=== PATIENT | female | born 1945 | race Caucasian/White ===

== ENCOUNTER → 2017-09-23 | Outpatient (CLI) | payer OTHER ==
[~2017-09-23] MED LIST: ACET-1256 PO; ASPEC81 PO; ATOR-24 PO; CALC500C70 PO; FRRS300 PO; MELO15TA3 PO; MULT-506 PO; NTRGSL/4 UT; PRLSR20 PO; [UNRECOGNIZED DRUG - CODE] PO
--- NOTE | 2017-09-23 15:39 | MAMMOGRAPHY REPORT ---
BILATERAL DIGITAL SCREENING MAMMOGRAM TOMOSYNTHESIS WITH CAD: 09/23/2017 CLINICAL HISTORY: Routine screening. Patient has no complaints. TECHNIQUE: The study was acquired using full field digital technology and interpreted from soft copy. Breast tomosynthesis in addition to standard 2D mammography was performed. Current study was also ev aluated with a Computer Aided Detection (CAD) system. COMPARISON: Comparison is made to exams dated: 03/28/2015 mammogram - [facility], mammogram, 02/15/2013 mammogram, and 05/27/2010 mammogram. BREAST COMPOSITION: There are scattered areas of fibroglandular density in both breasts. FINDINGS: No suspicious masses, calcifications, or areas of architectural distortion are noted in either breast . There has been no significant interval change compared to prior exams. Scattered bilateral benign appearing calcifications are not significantly changed. Oval circumscribed benign-appearing mass in the right breast at 6:00 is stable dating back to at least the 2010 exam. IMPRESSION: ACR BI-RADS CATEGORY 2: BENIGN There is no mammographic evidence of malignancy. A 1 year screening mammogram is recommended.( [id number]) The patient will receive written notification of the results. Some breast cancers are not detected with mammography. A negative mammographic report should not micheal y biopsy if a clinically suggestive mass is present. Devika Alvarez M.D. ah/:09/23/2017 07:46:24 Natural Resources Engineer: RT Gildardo(David)(M), [facility] letter sent: Normal 1/2 BI-RADS Code: ACR BI-RADS Category 2: Benign
== END | disposition home or self-care (01) ==
LOC: C.MAMM 07:19
PROVIDERS: ATTEND Family Medicine
DX: Z12.31 Encounter for screening mammogram for malignant neoplasm of breast (principal)

== ENCOUNTER 2020-11-18 15:45 | Inpatient (IN) ==
--- NOTE | 2020-11-18 17:39 | Emergency Department Note ---
Impression & Plan Cellulitis, HTN (hypertension), Abnormal ECG, Breath shortness ED Provider Note NAME: KALIE LIMA AGE: 75 SEX: F : 1945 ARRIVES VIA: Walk-In INFORMANT: Patient ED PROVIDER(S): Anand Mack DO CHIEF COMPLAINT: Right leg pain and shortness of breath HPI: Patient is a 75-year-old female who presents the ER for right calf pain. Patient notes that this started this past Tuesday. Has some redness which is worsening. Has a history of cellulitis. This feels like her previous bouts of cellulitis. Denies any headache or change in vision. No chest pain but does admit to shortness of breath over this weekend. Was seen and evaluated by the PCP and referred in for the shortness of breath for CT of the chest. Patient does take Eliquis and has not missed any doses. No other exacerbating or remitting factors. She notes that shortness of breath is worse with lying flat. She has gained 4 pounds recently. ROS: See above HPI for pertinent positives & negatives. A total of 10 systems reviewed and were otherwise negative. PAST MEDICAL HISTORY:See Below PAST SURGICAL HISTORY:See Below FAMILY HISTORY:See Below SOCIAL HISTORY:See Below HOME MEDICATIONS:See Below ALLERGIES:See Below VITALS:See Below PHYSICAL EXAMINATION: GENERAL: Sitting up in bed, alert, well appearing, well nourished, no distress, non-toxic EYE EXAM: normal conjunctiva. OROPHARYNX: no exudate, no erythema, lips, buccal mucosa, and tongue normal and mucous membranes are moist NECK: supple, no nuchal rigidity, no adenopathy, non-tender LUNGS: Clear to auscultation. Normal chest wall mechanics HEART: no murmurs, S1 normal and S2 normal ABDOMEN: abdomen soft, non-tender, normo-active bowel sounds, no masses, no rebound or guarding. UPPER EXTREMITIES: upper extremities are grossly normal. LOWER EXTREMITIES: Right calf larger than left. Erythema on the anterior aguillon. Pitting edema bilaterally. NEURO EXAM: Normal sensorium, cranial nerves II-XII grossly intact, normal speech, no gross weakness of arms, no gross weakness of legs. MEDICAL DECISION MAKING: Patient is a 75-year-old female who presents the ER for the above-stated complaint. IV was established, blood work was obtained. Labs are noted as anemia. BMP with slightly elevated creatinine at 1.6. LFTs troponin lipase syndrome workable. Lyme was negative. Covid was negative. Doppler was negative for any clots. Chest x-ray with pulmonary vascular congestion which consistent with her shortness of breath with worse with lying flat and her weight gain. She was given IV Lasix. She is given IV Rocephin for the cellulitis. EKG does show new septal Q waves with T wave changes. Uncertain of when this actually occurred. With her blood pressures ranging from 180s to 200s. Discussed case with hospitalist for further observation. Triage Nursing notes reviewed. Limited review of prior medical records performed Vital Signs: reviewed and remarkable for no significant abnormalities Differential diagnosis: Differential diagnoses includes but is not limited to pneumonia, bronchitis, COPD/Asthma exacerbation, pneumothorax, pulmonary embolism, congestive heart failure, acute coronary syndrome ER treatment provided: See below Diagnostics interpreted by me: ECG: Sinus rhythm rate of 60 Left axis No PVCs Septal Q waves T wave inversion in the septal leads Q waves are new from previous in 2008 Cardiac Monitoring: An order was placed for continuous cardiac monitoring. The monitor shows a rate of 62 with sinus rhythm. Laboratory studies: As stated above and show below. Imaging studies: See below Consultation(s): Discussed with Jessica Mckeon for further evaluation Procedures: none Critical Care: None Past Med/Surg History Medical History (Updated 11/18/20 @ 23:26 by Anand Mack DO) Arthritis Deep vein thrombosis DURING "MANY YEARS AGO">BLOOD THINNER AT THAT TIME (SINCE DISCONTINUED) Degenerative disc disease GERD (gastroesophageal reflux disease) History of cellulitis LOWER LEGS (REASON FOR BACTRIM) Hx of migraines Hyperlipidemia Hypertension Prediabetes DIET CONTROLLED Sleep apnea CPAP Surgical History Fusion of spine LUMBAR History of appendectomy History of arthroscopy LEFT KNEE X 1/RT KNEE X 2 History of cardiac cath OVER 5 YEARS AGO (NO STENTS PLACED) ALTOONA History of cholecystectomy History of colonoscopy WITH POLYPS REMOVED History of esophagogastroduodenoscopy (EGD) History of hysterectomy History of tooth extraction Hx of left cataract extraction Family History Mother Family history of diabetes mellitus Social History Smoking Status: Never smoker Second Hand Exposure: Yes (in past); Hx Alcohol Use: No Hx Substance Use: No Preferred Language: Tuvaluan Communication Ability: Effective Senior Data Architect Required: No Beliefs That Will Affect Care: None Current Living Situation: Spouse Feels Safe at Home: Yes Assistive Devices: Contacts, Denture - Upper and Glasses Allergies Allergies Allergy/AdvReac Type Severity Reaction Status Date / Time bee venom protein (honey bee) Allergy Severe Anaphylaxis Verified 11/18/20 19:09 Aminoglycosides Allergy Intermediate SEVERE RASH Verified 11/18/20 19:09 bacitracin Allergy Intermediate SEVERE RASH Verified 11/18/20 19:09 levofloxacin [From Levaquin] Allergy Intermediate RUPTURE Verified 11/18/20 19:09 ACHILLES neomycin Allergy Intermediate SEVERE RASH Verified 11/18/20 19:09 polymyxin B Allergy Intermediate SEVERE RASH Verified 11/18/20 19:09 Home Meds Home Medications Medication Instructions Recorded Confirmed acetaminophen 500 mg tablet 1,000 mg PO Q6H 08/14/19 11/18/20 hydrochlorothiazide 25 mg tablet 25 mg PO QAM 08/14/19 11/18/20 isosorbide mononitrate 30 mg 30 mg PO QAM 08/14/19 11/18/20 tablet,extended release 24 hr losartan 100 mg tablet 100 mg PO QAM 08/14/19 11/18/20 meloxicam 15 mg tablet 15 mg PO QAM 08/14/19 11/18/20 omeprazole 20 mg tablet,delayed 20 mg PO QAM 08/14/19 11/18/20 release rosuvastatin 40 mg tablet 40 mg PO HS 08/14/19 11/18/20 sulfamethoxazole 800 0.5 tab PO QAM 08/14/19 11/18/20 mg-trimethoprim 160 mg tablet (Bactrim DS) epinephrine 0.3 mg/0.3 mL 0.3 mg IM UD 11/18/20 11/18/20 injection, auto-injector (EpiPen) flecainide 100 mg tablet 100 mg PO BID 11/18/20 11/18/20 Results & Data (ED) Vital Signs Vital Signs - 24 hr 11/18/20 16:01 11/18/20 17:57 11/18/20 17:59 Temperature 36.4 C L Temperature Source Temporal Artery Scan Pulse Rate 76 63 Pulse Rate [Apical] Pulse Rate from SpO2 Sensor 63 Pulse Rhythm Pulse Rhythm [Apical] Pulse Strength [Apical] Respiratory Rate 20 18 Respiratory Effort / Characteristics Non-Labored Non-Labored Spontaneous Respiratory Depth Normal Normal Respiratory Pattern Regular Regular Blood Pressure 192/81 H Blood Pressure [Left Arm] Blood Pressure Mean 118 Blood Pressure Mean [Left Arm] Blood Pressure Position Sitting Blood Pressure Position [Left Arm] Pulse Oximetry 94 96 Oxygen Delivery Method Room Air Room Air Room Air Oxygen Flow Rate Sepsis Recent Fever Within 48 Hours No Sepsis New/Unexplained Change in Mental Status No Sepsis Action Taken by Nursing No Action Required 11/18/20 18:09 11/18/20 18:12 11/18/20 19:14 Temperature Temperature Source Pulse Rate 60 63 Pulse Rate [Apical] 60 Pulse Rate from SpO2 Sensor 65 Pulse Rhythm Regular Pulse Rhythm [Apical] Regular Pulse Strength [Apical] Normal Respiratory Rate 18 18 Respiratory Effort / Characteristics Non-Labored Spontaneous Respiratory Depth Normal Respiratory Pattern Regular Blood Pressure 178/78 H Blood Pressure [Left Arm] 192/81 H Blood Pressure Mean 111 Blood Pressure Mean [Left Arm] 118 Blood Pressure Position Blood Pressure Position [Left Arm] Semi-fowlers Pulse Oximetry 96 97 96 Oxygen Delivery Method Room Air Room Air Room Air Oxygen Flow Rate 0 Sepsis Recent Fever Within 48 Hours Sepsis New/Unexplained Change in Mental Status Sepsis Action Taken by Nursing 11/18/20 20:38 11/18/20 20:42 11/18/20 21:00 Temperature Temperature Source Pulse Rate 62 62 66 Pulse Rate [Apical] Pulse Rate from SpO2 Sensor 63 62 65 Pulse Rhythm Pulse Rhythm [Apical] Pulse Strength [Apical] Respiratory Rate 22 18 19 Respiratory Effort / Characteristics Respiratory Depth Respiratory Pattern Blood Pressure 146/60 H 158/54 H Blood Pressure [Left Arm] Blood Pressure Mean 88 88 Blood Pressure Mean [Left Arm] Blood Pressure Position Blood Pressure Position [Left Arm] Pulse Oximetry 98 97 98 Oxygen Delivery Method Room Air Room Air Room Air Oxygen Flow Rate Sepsis Recent Fever Within 48 Hours Sepsis New/Unexplained Change in Mental Status Sepsis Action Taken by Nursing 11/18/20 21:39 11/18/20 21:40 11/18/20 22:01 Temperature Temperature Source Pulse Rate 66 73 Pulse Rate [Apical] Pulse Rate from SpO2 Sensor 66 66 74 Pulse Rhythm Pulse Rhythm [Apical] Pulse Strength [Apical] Respiratory Rate 15 18 Respiratory Effort / Characteristics Respiratory Depth Respiratory Pattern Blood Pressure 148/62 H Blood Pressure [Left Arm] Blood Pressure Mean 90 Blood Pressure Mean [Left Arm] Blood Pressure Position Blood Pressure Position [Left Arm] Pulse Oximetry 96 96 94 Oxygen Delivery Method Room Air Room Air Room Air Oxygen Flow Rate Sepsis Recent Fever Within 48 Hours Sepsis New/Unexplained Change in Mental Status Sepsis Action Taken by Nursing 11/18/20 22:31 Temperature Temperature Source Pulse Rate 68 Pulse Rate [Apical] Pulse Rate from SpO2 Sensor 69 Pulse Rhythm Pulse Rhythm [Apical] Pulse Strength [Apical] Respiratory Rate 20 Respiratory Effort / Characteristics Respiratory Depth Respiratory Pattern Blood Pressure 119/52 L Blood Pressure [Left Arm] Blood Pressure Mean 74 Blood Pressure Mean [Left Arm] Blood Pressure Position Blood Pressure Position [Left Arm] Pulse Oximetry 97 Oxygen Delivery Method Room Air Oxygen Flow Rate Sepsis Recent Fever Within 48 Hours Sepsis New/Unexplained Change in Mental Status Sepsis Action Taken by Nursing Laboratory Data Result diagrams: 11/18/20 17:56 11/18/20 17:56 Lab Results 11/18/20 11/18/20 11/18/20 Range/Units 17:56 17:56 17:56 WBC 8.26 (4.8-10.8) K/uL RBC 3.50 L (4.2-5.4) M/uL Hgb 10.9 L (12.0-16.0) g/dL Hct 34.4 L (37-47) % MCV 98.3 (80-100) fL MCH 31.1 (25-34) pg MCHC 31.7 L (32-36) g/dL RDW Std Deviation 50.0 H (36.4-46.3) fL RDW Coeff of Adrian 14.1 (11.5-14.5) % Plt Count 215 (130-400) K/uL MPV 11.0 H (7.4-10.4) fL Immature Gran % (Auto) 0.1 % Neut % (Auto) 74.3 % Lymph % (Auto) 13.1 % Parmer % (Auto) 10.3 % Eos % (Auto) 2.1 % Baso % (Auto) 0.1 % Neut # (Auto) 6.14 (1.4-6.5) K/uL Lymph # (Auto) 1.08 L (1.2-3.4) K/uL Parmer # (Auto) 0.85 H (0.11-0.59) K/uL Eos # (Auto) 0.17 (0-0.5) K/uL Baso # (Auto) 0.01 (0-0.2) K/uL Immature Gran # (Auto) 0.01 (0.00-0.02) K/uL APTT 36.5 H (21.0-31.0) Seconds PTT Ratio 1.4 Sodium 139 (136-145) mmol/L Potassium 4.0 (3.5-5.1) mmol/L Chloride 107 (98-107) mmol/L Carbon Dioxide 28 (21-32) mmol/L Anion Gap 4.0 (3-11) BUN 31 H (7-18) mg/dl Creatinine 1.60 H (0.6-1.2) mg/dl Est Cr Clr Drug Dosing 38.8 ml/min Est GFR ( Amer) 36.2 ml/min Est GFR (Non-Af Amer) 31.2 ml/min BUN/Creatinine Ratio 19.5 (10-20) Glucose 117 H (70-99) mg/dl Calcium 8.9 (8.5-10.1) mg/dl Total Bilirubin 0.5 (0.2-1) mg/dl AST 17 (15-37) U/L ALT 21 (12-78) U/L Alkaline Phosphatase 83 (45-117) U/L Troponin I < 0.015 (0-0.045) ng/ml NT-Pro-B Natriuret Pep 415 (0-900) pg/ml Total Protein 8.1 (6.4-8.2) gm/dl Albumin 3.8 (3.4-5.0) gm/dl Globulin 4.3 H (2.5-4.0) gm/dl Albumin/Globulin Ratio 0.9 (0.9-2) Lipase 143 (73-393) U/L Anaplasma Smear Lyme Disease IgG Ab (Negative) Lyme Disease IgM Ab (Negative) COVID-19 Eval Order SARS-CoV-2 (PCR) (Negative) 11/18/20 11/18/20 11/18/20 Range/Units 17:56 17:56 20:40 WBC (4.8-10.8) K/uL RBC (4.2-5.4) M/uL Hgb (12.0-16.0) g/dL Hct (37-47) % MCV (80-100) fL MCH (25-34) pg MCHC (32-36) g/dL RDW Std Deviation (36.4-46.3) fL RDW Coeff of Adrian (11.5-14.5) % Plt Count (130-400) K/uL MPV (7.4-10.4) fL Immature Gran % (Auto) % Neut % (Auto) % Lymph % (Auto) % Parmer % (Auto) % Eos % (Auto) % Baso % (Auto) % Neut # (Auto) (1.4-6.5) K/uL Lymph # (Auto) (1.2-3.4) K/uL Parmer # (Auto) (0.11-0.59) K/uL Eos # (Auto) (0-0.5) K/uL Baso # (Auto) (0-0.2) K/uL Immature Gran # (Auto) (0.00-0.02) K/uL APTT (21.0-31.0) Seconds PTT Ratio Sodium (136-145) mmol/L Potassium (3.5-5.1) mmol/L Chloride (98-107) mmol/L Carbon Dioxide (21-32) mmol/L Anion Gap (3-11) BUN (7-18) mg/dl Creatinine (0.6-1.2) mg/dl Est Cr Clr Drug Dosing ml/min Est GFR ( Amer) ml/min Est GFR (Non-Af Amer) ml/min BUN/Creatinine Ratio (10-20) Glucose (70-99) mg/dl Calcium (8.5-10.1) mg/dl Total Bilirubin (0.2-1) mg/dl AST (15-37) U/L ALT (12-78) U/L Alkaline Phosphatase (45-117) U/L Troponin I (0-0.045) ng/ml NT-Pro-B Natriuret Pep (0-900) pg/ml Total Protein (6.4-8.2) gm/dl Albumin (3.4-5.0) gm/dl Globulin (2.5-4.0) gm/dl Albumin/Globulin Ratio (0.9-2) Lipase (73-393) U/L Anaplasma Smear See Comment Lyme Disease IgG Ab Negative (Negative) Lyme Disease IgM Ab Negative (Negative) COVID-19 Eval Order Cov[facility] at [facility] SARS-CoV-2 (PCR) (Negative) 11/18/20 Range/Units 20:40 WBC (4.8-10.8) K/uL RBC (4.2-5.4) M/uL Hgb (12.0-16.0) g/dL Hct (37-47) % MCV (80-100) fL MCH (25-34) pg MCHC (32-36) g/dL RDW Std Deviation (36.4-46.3) fL RDW Coeff of Adrian (11.5-14.5) % Plt Count (130-400) K/uL MPV (7.4-10.4) fL Immature Gran % (Auto) % Neut % (Auto) % Lymph % (Auto) % Parmer % (Auto) % Eos % (Auto) % Baso % (Auto) % Neut # (Auto) (1.4-6.5) K/uL Lymph # (Auto) (1.2-3.4) K/uL Parmer # (Auto) (0.11-0.59) K/uL Eos # (Auto) (0-0.5) K/uL Baso # (Auto) (0-0.2) K/uL Immature Gran # (Auto) (0.00-0.02) K/uL APTT (21.0-31.0) Seconds PTT Ratio Sodium (136-145) mmol/L Potassium (3.5-5.1) mmol/L Chloride (98-107) mmol/L Carbon Dioxide (21-32) mmol/L Anion Gap (3-11) BUN (7-18) mg/dl Creatinine (0.6-1.2) mg/dl Est Cr Clr Drug Dosing ml/min Est GFR ( Amer) ml/min Est GFR (Non-Af Amer) ml/min BUN/Creatinine Ratio (10-20) Glucose (70-99) mg/dl Calcium (8.5-10.1) mg/dl Total Bilirubin (0.2-1) mg/dl AST (15-37) U/L ALT (12-78) U/L Alkaline Phosphatase (45-117) U/L Troponin I (0-0.045) ng/ml NT-Pro-B Natriuret Pep (0-900) pg/ml Total Protein (6.4-8.2) gm/dl Albumin (3.4-5.0) gm/dl Globulin (2.5-4.0) gm/dl Albumin/Globulin Ratio (0.9-2) Lipase (73-393) U/L Anaplasma Smear Lyme Disease IgG Ab (Negative) Lyme Disease IgM Ab (Negative) COVID-19 Eval Order SARS-CoV-2 (PCR) NEGATIVE (Negative) Administered Medications Discontinued Medications Furosemide (Furosemide 40 Mg/4 Ml Vial) 40 mg IV NOW STA Stop: 11/18/20 20:04 Last Admin: 11/18/20 20:23 Dose: 40 mg Documented by: [id number] Hydralazine HCl (Hydralazine Hcl 20 Mg/Ml Vial) 10 mg IV NOW STA Stop: 11/18/20 20:26 Last Admin: 11/18/20 22:09 Dose: Not Given Documented by: [id number] Ceftriaxone Sodium (Rocephin) 1,000 mg in 50 mls @ 100 mls/hr IV NOW STA Stop: 11/18/20 19:31 Last Infusion: 11/18/20 19:40 Dose: 0 mls/hr Documented by: [id number] Admin: 11/18/20 19:09 Dose: 100 mls/hr Documented by: [id number] Imaging Data Radiologist's Impression: Chest X-Ray 11/18/20 17:35 XR chest 1V portable CLINICAL HISTORY: Chest Pain COMPARISON STUDY: Chest radiograph March 25, 2008. FINDINGS: A cardiac monitoring device is incidentally noted. There is no pneumothorax or pleural effusion. No consolidation is identified. Note is made of mild cardiomegaly. There is slight interstitial prominence without overt pulmonary edema. IMPRESSION: Mild cardiomegaly. Pulmonary vascular congestion without overt pulmonary edema. ACT 112: Negative or not required by law. Electronically signed by: Michael Clark M.D. 11/18/2020 7:46 PM Venous Doppler Study 11/18/20 17:35 RIGHT LOWER EXTREMITY VENOUS DOPPLER CLINICAL HISTORY: Right lower extremity pain. COMPARISON STUDY: No previous studies for comparison. TECHNIQUE: Sonography of the deep venous system of the right lower extremity was performed. Compression and augmentation were evaluated. FINDINGS: The right common femoral, superficial femoral and popliteal veins were compressible. Augmentation was normal. Flow was shown within the deep calf vessels. There is a small complex right popliteal cyst. This measures 4.4 x 2 x 1 cm. Sonography of the lateral right calf at site of pain demonstrated subcutaneous edema. No fluid collection is identified. IMPRESSION: 1. No evidence of deep venous thrombus within the right lower extremity. 2. Subcutaneous edema of the lateral right calf at site of pain. No fluid collection. 3. Small complex right popliteal cyst. ACT 112: Negative or not required by law. Electronically signed by: Michael Clark M.D. 11/18/2020 7:16 PM Discharge Plan Visit Data Chief Complaint: Infection Stated Complaint: CELLULITIS,SOB ED Provider: Anand Mack Discharge Problem: Cellulitis, HTN (hypertension), Abnormal ECG, Breath shortness Forms Stand Alone Forms: [employer] Prescriptions Prescriptions: No Action meloxicam 15 mg Tablet 15 mg PO QAM RF: 0 isosorbide mononitrate 30 mg Tablet Extended Release 24 Hr 30 mg PO QAM RF: 0 sulfamethoxazole-trimethoprim [Bactrim DS] 800-160 mg Tablet 0.5 tab PO QAM RF: 0 hydrochlorothiazide 25 mg Tablet 25 mg PO QAM RF: 0 losartan 100 mg Tablet 100 mg PO QAM RF: 0 rosuvastatin 40 mg Tablet 40 mg PO HS RF: 0 omeprazole 20 mg Tablet,Delayed Release (Dr/Ec) 20 mg PO QAM RF: 0 acetaminophen 500 mg Tablet 1,000 mg PO Q6H RF: 0 flecainide 100 mg tablet 100 mg PO BID RF: 0 epinephrine [EpiPen] 0.3 mg/0.3 mL auto-injector 0.3 mg IM UD RF: 0 Referrals Referrals: Dalila Wick MD [Primary Care Provider] - Discharge Problem: Cellulitis Qualifiers: Site of cellulitis: unspecified site Qualified Code(s): L03.90 - Cellulitis, unspecified HTN (hypertension) Qualifiers: Hypertension type: unspecified Qualified Code(s): I10 - Essential (primary) hypertension
[2020-11-18 18:05] LABS: Basophils # (auto) 0.01 K/uL (0-0.2); Basophils % (auto) 0.1 %; Eosinophils # (auto) 0.17 K/uL (0-0.5); Eosinophils % (auto) 2.1 %; Hematocrit (blood only) 34.4 % (37-47); Hemoglobin 10.9 g/dL (12.0-16.0); Immature Granulocytes # (auto) 0.01 K/uL (0.00-0.02); Immature Granulocytes % (auto) 0.1 %; Lymphocytes # (auto) 1.08 K/uL (1.2-3.4); Lymphocytes % (auto) 13.1 %; Mean Corpuscular Hemoglobin 31.1 pg (25-34); Mean Corpuscular Hgb Conc 31.7 g/dL (32-36); Mean Corpuscular Volume 98.3 fL (80-100); Monocytes # (auto) 0.85 K/uL (0.11-0.59); Monocytes % (auto) 10.3 %; Neutrophils # (auto) 6.14 K/uL (1.4-6.5); Neutrophils % (auto) 74.3 %; Platelet Count 215 K/uL (130-400); RDW Coefficient of Variation 14.1 % (11.5-14.5); White Blood Count 8.26 K/uL (4.8-10.8)
[2020-11-18 18:22] LABS: Partial Thromboplastin Ratio 1.4; Partial Thromboplastin Time 36.5 Seconds (21.0-31.0)
[2020-11-18 18:29] LABS: Alanine Aminotransferase 21 U/L (12-78); Albumin Level 3.8 gm/dl (3.4-5.0); Aspartate Aminotransferase 17 U/L (15-37); BUN Creatinine Ratio 19.5 (10-20); Blood Urea Nitrogen 31 mg/dl (7-18); Calcium 8.9 mg/dl (8.5-10.1); Carbon Dioxide 28 mmol/L (21-32); Chloride 107 mmol/L (98-107); Creatinine Clr Calc Pharmacy 38.8 ml/min; Est GFR (African American) 36.2 ml/min; Est GFR (Non-African American) 31.2 ml/min; Glucose 117 mg/dl (70-99); Lipase 143 U/L (73-393); Sodium 139 mmol/L (136-145)
[2020-11-18 18:34] LABS: Albumin Globulin Ratio 0.9 (0.9-2); Alkaline Phosphatase 83 U/L (45-117); Bilirubin,Total 0.5 mg/dl (0.2-1); Globulin 4.3 gm/dl (2.5-4.0); Total Protein 8.1 gm/dl (6.4-8.2); Troponin I < 0.015 ng/ml (0-0.045)
[2020-11-18] MEDS ORDERED: cefTRIAXone SODIUM 1,000 MG/50 ML BAG IV STA (19:02)
--- NOTE | 2020-11-18 19:18 | Ultrasound Report ---
RIGHT LOWER EXTREMITY VENOUS DOPPLER CLINICAL HISTORY: Right lower extremity pain. COMPARISON STUDY: No previous studies for comparison. TECHNIQUE: Sonography of the deep venous system of the right lower extremity was performed. Compress ion and augmentation were evaluated. FINDINGS: The right common femoral, superficial femoral and popliteal veins were compressible. Augme ntation was normal. Flow was shown within the deep calf vessels. There is a small complex right popli teal cyst. This measures 4.4 x 2 x 1 cm. Sonography of the lateral right calf at site of pain demonst rated subcutaneous edema. No fluid collection is identified. IMPRESSION: 1. No evidence of deep venous thrombus within the right lower extremity. 2. Subcutaneous edema of the lateral right calf at site of pain. No fluid collection. 3. Small complex right popliteal cyst. ACT 112: Negative or not required by law. Electronically signed by: Michael Clark M.D. 11/18/2020 7:16 PM
--- NOTE | 2020-11-18 19:48 | XRay Report ---
XR chest 1V portable CLINICAL HISTORY: Chest Pain COMPARISON STUDY: Chest radiograph March 25, 2008. FINDINGS: A cardiac monitoring device is incidentally noted. There is no pneumothorax or pleural effu alberta. No consolidation is identified. Note is made of mild cardiomegaly. There is slight interstitial prominence without overt pulmonary edema. IMPRESSION: Mild cardiomegaly. Pulmonary vascular congestion without overt pulmonary edema. ACT 112: Negative or not required by law. Electronically signed by: Michael Clark M.D. 11/18/2020 7:46 PM
[2020-11-18] MEDS ORDERED: FUROSEMIDE 40 MG/4 ML VIAL IV STA (20:03)
[2020-11-18] MEDS ORDERED: hydrALAZINE HCL 20 MG/ML VIAL IV STA (20:25)
--- NOTE | 2020-11-18 20:56 | History & Physical Report ---
Date of Service November 18, 2020 Assessment & Plan (1) Cellulitis: Plan: 75 y/o F w/ recurrent cellulitis on daily Bactrim prevention who presents w/ acute RLE cellulitis w/ some concerns for hypoxia / dyspnea. - also considered PAD, but foot is not erythematous, reassuring - venous doppler neg for dvt. - check lyme/anaplasma - s/p Rocephin in ED (24 hour dose). For subsequent days, consider vanc vs doxycycline for MRSA coverage because patient reports MRSA hx in distant past and has always received MRSA coverage during prior cellulitis admissions. - follow kidney function (2) Acute respiratory failure with hypoxia: Plan: - satting well on RA and lungs clear to auscultation, reassuring - significant 1 day wt gain, considered CHF as most likely etiology, though no prior hx - cardiac event would be possible sudden contributor - ddx: PE, infection - check echo - [place] 3 points, moderate probability. given current reassuring clinical picture, will not order CTA - check bnp - trend trop - Is/Os. external urinary catheter - daily weights - s/p Lasix in ED. Further diuresis as needed (3) Chest discomfort: Plan: - ecg new septal q waves and T waves in anterior leads. - had lexiscan 2016 and cath 2017 30% rca - never smoker - trend trop and check echo as above (4) Urinary retention: Plan: - chronic incontinence. neg for other saddle anesthesia sxs - has spinal stenosis, but overall presentation not consistent w/ acute occlusion or emergent presentation - ordered bladder scan (5) Elevated serum creatinine: Plan: - baseline unknown. Cr 1.6 this admission - possible/likely NELSY - follow BMP (6) FLAVIO (obstructive sleep apnea): Plan: - continue home qhs cpap 9 mmHg, scheduled to start night of 11/19/20 (7) HTN (hypertension): Plan: - continue home regimen (8) GERD (gastroesophageal reflux disease): Plan: - continue home omeprazole (9) Hyperlipidemia: Plan: - continue home regimen Plan: FEN/GI: low Na diet. No maintenance IVF ppx: home Eliquis 5 BID code: full dispo: med/surg History of Present Illness Chief Complaint: right leg cellulitis Primary Care Provider: MD Sabino Solisette Johanana is a 75 y/o F w/ PMHx of recurrent lower extremity cellulitis, afib on Eliquis, FLAVIO on cpap, spinal stenosis (fusion L4-L5 2008), and pre DM who presents via referral from PCP w/ 1 day of R leg swelling/erythema and 4 pound weight gain x1 day. She has had several weeks of dyspnea on exertion and noted 2-3 days of orthopnea. Patient states that 2 days ago, she had a day of difficulty taking deep breaths, limited by mild chest pressure discomfort. Denied radiation, jaw/arm involvement. O2 sat dipped to 90 x 1 episode at home. Patient also had a prolonged half-day where she was unable to urinate and had suprapublic discomfort, since resolved. Never smoker. Denies having prior echo. Covid vaccinated Pfizer x2 in May. +chronic urinary incontinence but denies saddle anesthesia symptoms. No recent tick bites. Denies recent vigorous activity. Recently retired [employer]. Denies dietary changes; she tries to watch her salt intake. ED course: Rocephin x1. IV Lasix. Doppler neg for DVT. CXR w/ pulm vasc congestion. Cr elevated to 1.6. ECG w/ new septal Q waves and T wave changes. Allergies Allergy/AdvReac Type Severity Reaction Status Date / Time bee venom protein (honey bee) Allergy Severe Anaphylaxis Verified 11/18/20 19:09 Aminoglycosides Allergy Intermediate SEVERE RASH Verified 11/18/20 19:09 bacitracin Allergy Intermediate SEVERE RASH Verified 11/18/20 19:09 levofloxacin [From Levaquin] Allergy Intermediate RUPTURE Verified 11/18/20 19:09 ACHILLES neomycin Allergy Intermediate SEVERE RASH Verified 11/18/20 19:09 polymyxin B Allergy Intermediate SEVERE RASH Verified 11/18/20 19:09 Home Medications Medication Instructions Recorded Confirmed Type acetaminophen 500 mg tablet 1,000 mg PO Q6H 08/14/19 11/18/20 History hydrochlorothiazide 25 mg tablet 25 mg PO QAM 08/14/19 11/18/20 History isosorbide mononitrate 30 mg 30 mg PO QAM 08/14/19 11/18/20 History tablet,extended release 24 hr losartan 100 mg tablet 100 mg PO QAM 08/14/19 11/18/20 History meloxicam 15 mg tablet 15 mg PO QAM 08/14/19 11/18/20 History omeprazole 20 mg tablet,delayed 20 mg PO QAM 08/14/19 11/18/20 History release rosuvastatin 40 mg tablet 40 mg PO HS 08/14/19 11/18/20 History sulfamethoxazole 800 0.5 tab PO QAM 08/14/19 11/18/20 History mg-trimethoprim 160 mg tablet (Bactrim DS) epinephrine 0.3 mg/0.3 mL 0.3 mg IM UD 11/18/20 11/18/20 History injection, auto-injector (EpiPen) flecainide 100 mg tablet 100 mg PO BID 11/18/20 11/18/20 History Past Med/Surg History Medical History (Updated 11/19/20 @ 03:03 by Anand Knox MD) Arthritis Deep vein thrombosis DURING "MANY YEARS AGO">BLOOD THINNER AT THAT TIME (SINCE DISCONTINUED) Degenerative disc disease GERD (gastroesophageal reflux disease) History of cellulitis LOWER LEGS (REASON FOR BACTRIM) Hx of migraines Hyperlipidemia Hypertension Prediabetes DIET CONTROLLED Sleep apnea CPAP Surgical History Fusion of spine LUMBAR History of appendectomy History of arthroscopy LEFT KNEE X 1/RT KNEE X 2 History of cardiac cath OVER 5 YEARS AGO (NO STENTS PLACED) [place] History of cholecystectomy History of colonoscopy WITH POLYPS REMOVED History of esophagogastroduodenoscopy (EGD) History of hysterectomy History of tooth extraction Hx of left cataract extraction Family History Mother Family history of diabetes mellitus Social History Smoking Status: Never smoker Second Hand Exposure: Yes (in past); Hx Alcohol Use: No Hx Substance Use: No Preferred Language: Japanese Communication Ability: Effective Blueprint Maker Required: No Beliefs That Will Affect Care: None Current Living Situation: Spouse and Other Current Living Situation Comment: pt lives with spouse and brother Feels Safe at Home: Yes Assistive Devices: Denture - Upper, Denture - Lower, Glasses and Walker Review of Systems Review of Systems: Constitutional: Denies fever.. + weight gain. + chills 3 days ago, resolved Eyes: Denies blurry vision, vision changes ENT: Denies sore throat Cardiovascular: Denies chest pain, palpitations Respiratory: Denies shortness of breath. + orthopnea and dyspnea on exertion. Gastrointestinal: Denies current abdominal pain, nausea, vomiting, constipation, diarrhea Genitourinary: See HPI. Urinary retention resolved Musculoskeletal: See HPI Neurological: Denies headache. + chronic lower extremity paresthesias up to calf Physical Exam Physical Exam: General: Grossly A&O. NAD. Cooperative. HEENT: Atraumatic, normocephalic. EOMI. PERRL. Pulm: CTAB. -wheezes, -rales, -rhonchi. No respiratory distress. Cardiac: RRR, -mrg. Radial pulses intact and symmetrical. 3+ LE edema on right, 2+ on left. DP pulse stronger on left. Abdominal: Nontender, nondistended, soft. Integ: erythema and warmth of anterior right aguillon. Musculoskeletal: Mild ttp of posterior knees, bilaterally, chronic. Chest wall ttp, not reproducible of same type of chest pressure she had previously experienced Neuro: Normal strength and sensation of lower extremities. Neg SLR. Results & Data Results & Data ([facility]) Vital Signs (Past 12 Hours) Vital Signs Temp Pulse Pulse Resp BP BP Pulse Ox 11/18/20 20:38 62 22 146/60 H 98 11/18/20 19:14 63 18 178/78 H 96 11/18/20 18:12 97 11/18/20 18:09 60 60 18 192/81 H 96 11/18/20 17:57 63 18 192/81 H 96 11/18/20 16:01 36.4 C L 76 20 94 Laboratory Results Laboratory Results WBC 8.26 K/uL (4.8-10.8) 11/18/20 17:56 RBC 3.50 M/uL (4.2-5.4) L 11/18/20 17:56 Hgb 10.9 g/dL (12.0-16.0) L 11/18/20 17:56 Hct 34.4 % (37-47) L 11/18/20 17:56 MCV 98.3 fL (80-100) 11/18/20 17:56 MCH 31.1 pg (25-34) 11/18/20 17:56 MCHC 31.7 g/dL (32-36) L 11/18/20 17:56 RDW Std Deviation 50.0 fL (36.4-46.3) H 11/18/20 17:56 RDW Coeff of [place] 14.1 % (11.5-14.5) 11/18/20 17:56 Plt Count 215 K/uL (130-400) 11/18/20 17:56 MPV 11.0 fL (7.4-10.4) H 11/18/20 17:56 Immature Gran % (Auto) 0.1 % 11/18/20 17:56 Neut % (Auto) 74.3 % 11/18/20 17:56 Lymph % (Auto) 13.1 % 11/18/20 17:56 [place] % (Auto) 10.3 % 11/18/20 17:56 Eos % (Auto) 2.1 % 11/18/20 17:56 Baso % (Auto) 0.1 % 11/18/20 17:56 Neut # (Auto) 6.14 K/uL (1.4-6.5) 11/18/20 17:56 Lymph # (Auto) 1.08 K/uL (1.2-3.4) L 11/18/20 17:56 [place] # (Auto) 0.85 K/uL (0.11-0.59) H 11/18/20 17:56 Eos # (Auto) 0.17 K/uL (0-0.5) 11/18/20 17:56 Baso # (Auto) 0.01 K/uL (0-0.2) 11/18/20 17:56 Immature Gran # (Auto) 0.01 K/uL (0.00-0.02) 11/18/20 17:56 APTT 36.5 Seconds (21.0-31.0) H 11/18/20 17:56 PTT Ratio 1.4 11/18/20 17:56 Sodium 139 mmol/L (136-145) 11/18/20 17:56 Potassium 4.0 mmol/L (3.5-5.1) 11/18/20 17:56 Chloride 107 mmol/L (98-107) 11/18/20 17:56 Carbon Dioxide 28 mmol/L (21-32) 11/18/20 17:56 Anion Gap 4.0 (3-11) 11/18/20 17:56 BUN 31 mg/dl (7-18) H 11/18/20 17:56 Creatinine 1.60 mg/dl (0.6-1.2) H 11/18/20 17:56 Est Cr Clr Drug Dosing 38.8 ml/min 11/18/20 17:56 Est GFR ( Amer) 36.2 ml/min 11/18/20 17:56 Est GFR (Non-Af Amer) 31.2 ml/min 11/18/20 17:56 BUN/Creatinine Ratio 19.5 (10-20) 11/18/20 17:56 Glucose 117 mg/dl (70-99) H 11/18/20 17:56 Calcium 8.9 mg/dl (8.5-10.1) 11/18/20 17:56 Total Bilirubin 0.5 mg/dl (0.2-1) 11/18/20 17:56 AST 17 U/L (15-37) 11/18/20 17:56 ALT 21 U/L (12-78) 11/18/20 17:56 Alkaline Phosphatase 83 U/L (45-117) 11/18/20 17:56 Troponin I < 0.015 ng/ml (0-0.045) 11/18/20 17:56 NT-Pro-B Natriuret Pep 415 pg/ml (0-900) 11/18/20 17:56 Total Protein 8.1 gm/dl (6.4-8.2) 11/18/20 17:56 Albumin 3.8 gm/dl (3.4-5.0) 11/18/20 17:56 Globulin 4.3 gm/dl (2.5-4.0) H 11/18/20 17:56 Albumin/Globulin Ratio 0.9 (0.9-2) 11/18/20 17:56 Lipase 143 U/L (73-393) 11/18/20 17:56 Anaplasma Smear See Comment 11/18/20 17:56 Lyme Disease IgG Ab Negative (Negative) 11/18/20 17:56 Lyme Disease IgM Ab Negative (Negative) 11/18/20 17:56 COVID-19 Eval Order Covid19 at [facility] 11/18/20 20:40 SARS-CoV-2 (PCR) NEGATIVE (Negative) 11/18/20 20:40 Diagnostic Findings Chest X-Ray 11/18/20 17:35 XR chest 1V portable CLINICAL HISTORY: Chest Pain COMPARISON STUDY: Chest radiograph March 25, 2008. FINDINGS: A cardiac monitoring device is incidentally noted. There is no pneumothorax or pleural effusion. No consolidation is identified. Note is made of mild cardiomegaly. There is slight interstitial prominence without overt pulmonary edema. IMPRESSION: Mild cardiomegaly. Pulmonary vascular congestion without overt pulmonary edema. Venous Doppler Study 11/18/20 17:35 RIGHT LOWER EXTREMITY VENOUS DOPPLER CLINICAL HISTORY: Right lower extremity pain. COMPARISON STUDY: No previous studies for comparison. TECHNIQUE: Sonography of the deep venous system of the right lower extremity was performed. Compression and augmentation were evaluated. FINDINGS: The right common femoral, superficial femoral and popliteal veins were compressible. Augmentation was normal. Flow was shown within the deep calf vessels. There is a small complex right popliteal cyst. This measures 4.4 x 2 x 1 cm. Sonography of the lateral right calf at site of pain demonstrated subcutaneous edema. No fluid collection is identified. IMPRESSION: 1. No evidence of deep venous thrombus within the right lower extremity. 2. Subcutaneous edema of the lateral right calf at site of pain. No fluid collection. 3. Small complex right popliteal cyst. Code Status & VTE Plan Code Status full code VTE Prophylaxis Plan VTE Prophylaxis will be ordered: Yes Supervising Physician Co-Signing Physician Notes Patient seen and examined, chart reviewed, case discussed with Dr. Knox and I agree with the plan as discussed. In brief, patient is a 75yo female presenting with RLE redness and pain consistent with prior episodes of cellulitis as well as orthopnea, weight gain and edema. On exam she is afebrile, HD stable, NAD, non-toxic in appearance HEENT - NC/AT, PERRL, MMM, Neck supple Heart - +S1/S2, regular, no m/r/g Lungs - CTA Abd - +BS, soft, NT/ND Ext - warmth and redness of RLE below knee, tenderness of lateral aguillon with edema, no crepitus/streaking Labs and images reviewed Assessment/Plan 1. Cellulitis - RLE, patient afebrile, non-toxic in appearance, has h/o MRSA infection in distant past. Will cover with Vancomycin. Tylenol as needed for pain 2. Transient episode of hypoxia as reported from home measurement. No hypoxia here. Patient is 97% on RA. In conjunction with complaints of edema, orthopnea and weight gain must consider CHF. Will check 2D echo. Patient given Lasix in ER - monitor response Remainder of plan as above (1) Cellulitis Site of cellulitis: unspecified site Qualified Code(s): L03.90 - Cellulitis, unspecified (2) HTN (hypertension) Hypertension type: unspecified Qualified Code(s): I10 - Essential (primary) hypertension
[2020-11-18] MEDS ORDERED: FLECAINIDE ACETATE 100 MG TABLET PO SCH (22:25)
[2020-11-18] MEDS ORDERED: APIXABAN 5 MG TABLET PO SCH (22:30)
[2020-11-18] MEDS ORDERED: FLECAINIDE ACETATE 100 MG TABLET PO STA (22:43)
[2020-11-18] MEDS ORDERED: APIXABAN 5 MG TABLET PO STA (22:44)
[2020-11-18] MEDS ORDERED: ROSUVASTATIN CALCIUM 20 MG TAB PO STA (22:51)
[2020-11-18 23:08] LABS: Lyme Ab IgG w/WB Rflx Negative (Negative); Lyme Ab IgM w/WB Rflx Negative (Negative)
[2020-11-18 23:12] LABS: NT Pro B Type Natriuretic Pept 415 pg/ml (0-900)
--- NOTE | 2020-11-19 | Billing Data ---
Date of Service November 18, 2020 Coding Level of Care Code INT OBSERVATION CARE 50M LVL 2
[2020-11-19] MEDS: ACETAMINOPHEN 325 MG TAB PO PRN ×3 (01:48→19:48)
[2020-11-19] MEDS ORDERED: PNEUMOCOCCAL POLYSACCHARIDES 25 MCG/0.5 ML VIAL/SYR IM ONE (08:00)
--- NOTE | 2020-11-19 08:26 | Electrocardiogram Report ---
Test Reason : Blood Pressure : / mmHG Vent. Rate : 060 BPM Atrial Rate : 060 BPM P-R Int : 204 ms QRS Dur : 118 ms QT Int : 450 ms P-R-T Axes : 043 -36 046 degrees QTc Int : 450 ms Normal sinus rhythm Left anterior fascicular block Incomplete right bundle branch block Possible Septal infarct , age undetermined Abnormal ECG When compared with ECG of 25-MAR-2008 11:04, Criteria for Septal infarct is now Present Confirmed by Sam Pineda ([id number]) on 11/19/2020 8:26:37 AM Referred By: REFERRED SELF Confirmed By:Sam Pineda
[2020-11-19] MEDS ORDERED: VANCOMYCIN CONSULT ACTIVE PRN (08:58)
[2020-11-19] MEDS ORDERED: hydroCHLOROthiazide 25 MG TAB PO SCH (09:00)
[2020-11-19] MEDS ORDERED: VANCOMYCIN HCL 1,000 MG in SODIUM CHLORIDE 0.9% 250 ML IV SCH (09:00)
[2020-11-19] MEDS: LOSARTAN POTASSIUM 50 MG TAB PO SCH (09:07)
[2020-11-19] MEDS: APIXABAN 5 MG TABLET PO SCH ×2 (09:07→19:48)
[2020-11-19] MEDS: ISOSORBIDE MONO EXTENDED REL 30 MG TABCR PO SCH (09:07)
[2020-11-19] MEDS: PANTOprazole 40 MG TAB PO SCH (09:07)
[2020-11-19 09:26] LABS: Basophils # (auto) 0.01 K/uL (0-0.2); Basophils % (auto) 0.1 %; Eosinophils # (auto) 0.19 K/uL (0-0.5); Eosinophils % (auto) 2.7 %; Hematocrit (blood only) 34.8 % (37-47); Hemoglobin 11.2 g/dL (12.0-16.0); Immature Granulocytes # (auto) 0.01 K/uL (0.00-0.02); Immature Granulocytes % (auto) 0.1 %; Lymphocytes # (auto) 0.96 K/uL (1.2-3.4); Lymphocytes % (auto) 13.7 %; Mean Corpuscular Hemoglobin 31.5 pg (25-34); Mean Corpuscular Hgb Conc 32.2 g/dL (32-36); Mean Corpuscular Volume 97.8 fL (80-100); Mean Platelet Volume 10.9 fL (7.4-10.4); Monocytes # (auto) 0.64 K/uL (0.11-0.59); Monocytes % (auto) 9.1 %; Neutrophils # (auto) 5.21 K/uL (1.4-6.5); Neutrophils % (auto) 74.3 %; Platelet Count 227 K/uL (130-400); RDW Coefficient of Variation 13.9 % (11.5-14.5); RDW Standard Deviation 49.6 fL (36.4-46.3); Red Blood Count 3.56 M/uL (4.2-5.4); White Blood Count 7.02 K/uL (4.8-10.8)
[2020-11-19 09:52] LABS: BUN Creatinine Ratio 20.5 (10-20); Blood Urea Nitrogen 34 mg/dl (7-18); Calcium 9.4 mg/dl (8.5-10.1); Carbon Dioxide 27 mmol/L (21-32); Chloride 105 mmol/L (98-107); Creatinine Clr Calc Pharmacy 37.3 ml/min; Est GFR (African American) 34.8 ml/min; Est GFR (Non-African American) 30.1 ml/min; Glucose 119 mg/dl (70-99); Potassium 3.7 mmol/L (3.5-5.1); Sodium 140 mmol/L (136-145)
[2020-11-19 09:57] LABS: Troponin I < 0.015 ng/ml (0-0.045)
--- NOTE | 2020-11-19 10:03 | XCELERA ---
[id number]
[2020-11-19] MEDS: DAPTOmycin 325 MG in SYRINGE 0 ML IV SCH (12:00)
[2020-11-19] MEDS: FLECAINIDE ACETATE 100 MG TABLET PO SCH ×2 (12:01→21:53)
--- NOTE | 2020-11-19 12:11 | Hospitalist Progress Note ---
Date of Service November 19, 2020 Assessment & Plan (1) Cellulitis: Plan: 75 y/o F w/ recurrent cellulitis on daily Bactrim prevention who presents w/ acute RLE cellulitis w/ some concerns for hypoxia / dyspnea with sob w exertion (talks of cath w her disciplinary hearing officer in [place]). Past week bites by mosquitos to that leg lateral aspect where redness started (then traveled in car approx 45 min home but does keep elevated and uses stockings as much as possible) Hx PAD and ablations for both legs however foot not erythematous at this time and located to [place] at this time. Rec'd following up with her disciplinary hearing officer as he did the ablations and also concerns for CANTU and possible need for repeat cardiac cath as it has been several years (no hx stent, trop negative x2) US Venous Doppler: 1. No evidence of deep venous thrombus within the right lower extremity. 2. Subcutaneous edema of the lateral right calf at site of pain. No fluid collection. 3. Small complex right popliteal cyst. Given Rocephin in ER but will place on Dapto (vanco avoided given BMI) in patient w/ hx MRSA and requiring Vancomycin. Marked area of cellulitis today -- monitor for improvement Patient hopeful for discharge today but agreed to stay for another day IV abx to monitor response and plans for transition to PO Doxy at d/c if continues to improve (on chronic Bactrim for suppression) Continue to monitor response (2) HTN (hypertension): Plan: Controlled Holding HCTZ for Cr 1.65/dehydration on admission but continue her losartan for now Continue to monitor (3) GERD (gastroesophageal reflux disease): Plan: Continue PPI (4) Hyperlipidemia: Plan: Holding statin while on Dapto (5) Atrial fibrillation: Plan: hx of such however has been sinus rhythm --?if possible afib/rvr prior to admission with current infection leading to rapid weight gain possible? Regular on examination but not on monitored bed. denied palpitations but stated "not feeling well prior to driving back from event past weekend) follows with [facility] remains on flecainide, eliquis should follow up regarding arterial studies/cardiac cath as above --> no acute inpatient need for vascular consultation consider adding ASA if no prior hx bleeding? vs pletal (6) Breath shortness: Plan: reported with weight gain on admission BNP without elevation ECHO normal LV size/systolic function. EF 60-65% no wma. Mild concentric LVH, mild MR, moderately dilated L atrium Has been worsening over past month per patient's she has cared for and talked about her disciplinary hearing officer wanting to repeat a cardiac cath as she states she had a stress test not too far in the distant past but unsure of timing --> had lexiscan 2015 and cath 2017 30% rca Trop negative x 2 No further SOB reported -- did get dose of lasix 20mg x 1 on admission saturating on room air -- lungs clear but diminished on examination (7) FLAVIO (obstructive sleep apnea): Plan: continue home qhs cpap 9 mmHg (8) CKD (chronic kidney disease): Plan: reported knowing Cr elevated but unsure baseline -- unsure if NELSY or about her baseline but she did note was "back to normal" at one point Essentially unchanged on AM labs Avoid nephrotoxic medications Holding HCTZ for today, resume when able BMP in AM Plan: continued inpatient stay on IV abx but suspect can d/c tomorrow on PO doxy Will need to follow up with PCP and Cardiology outpatient about continued monitoring as well as vascular studies but does not appear to have acute inpatient need Admission and Anticipated Discharge Date Admission Date: November 18, 2020 Supervising Physician Co-Signing Physician Notes Attending Attestation - Chart reviewed in detail, care plan d/w MEREDITH Colunga. I agree w/ the camejo components of her documentation. Wellington Rubin MD Subjective Patient evaluated this afternoon. Feeling better and actually wanting to possible go home today. SOB resolved but noted symptoms with exertion. Follows cardiology in [place] and states was having talks about needing repeat cath in the future. Also has had ablations to both legs, most recent approx 3 years ago and stated that initially had helped w lymphedema symptoms. Previous infxns with MRSA cellulitis and required. She does not thin the past she did require IV Levaquin and vancomycin for several weeks for what appears to have been a bacteremia that she required a port for treatment could also been central line based on previous scarring. She notes that the Levaquin did ultimately agree resulted in her having a right Achilles tendon rupture which required rehab for this. States she was told about kidney numbers being elevated in past but unclear of baseline. Discussed her creatinine is 1.6 on admission and continues to be about the same on morning labs. Encouraged to push oral fluids. Rapid weight gain reported but without dietary indiscretions and states she is very careful. 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 Bites by mosquitos last week as possible source. Initially tender (and still is) to lateral aspect RLE. Palpable cord. Does have hx DVT but is on Eliquis. She was hopeful for d/c today but agreeable to stay overnight and marked cellulitis to monitor for improvement with plans to switch to Doxycycline in the past (typically on bactrim). Review of Systems Review of Systems: All systems reviewed & are unremarkable except as noted in HPI & below Physical Exam Physical Exam: General: WN, WD, obese. NAD. Cooperative and up at side of bed cleaning up. Prior healed surgical scars to lumbar spine and L anterior chest wall from prior IV access Head atraumatic, normocephalic. Pupils equal and reactive Pulm: CTAB, diminished throughout, no wheezing/crackles/rales apprecited CV: RRR, no m/r/g, edema to LLE 1+, none on RLE with exception of some lymphedema to thigh GI: +BS, soft, non-tender, no gaurding or rigidity Skin: warm, dry. RLE with erythema, tender to palpation primarily to lateral aspect RLE with palpable cord. pulses weak but palpable Neuro: Normal strength and sensation of lower extremities. Neg SLR. Psych: AOx3 Results & Data Results & Data ([facility]) Vital Signs (Past 12 Hours) Vital Signs Temp Pulse Resp BP Pulse Ox 11/19/20 07:42 36.8 C 60 16 147/74 H 90 Laboratory Results 11/19/20 11/19/20 11/19/20 Range/Units 08:54 08:54 08:54 WBC 7.02 (4.8-10.8) K/uL RBC 3.56 L (4.2-5.4) M/uL Hgb 11.2 L (12.0-16.0) g/dL Hct 34.8 L (37-47) % MCV 97.8 (80-100) fL MCH 31.5 (25-34) pg MCHC 32.2 (32-36) g/dL RDW Std Deviation 49.6 H (36.4-46.3) fL RDW Coeff of Adrian 13.9 (11.5-14.5) % Plt Count 227 (130-400) K/uL MPV 10.9 H (7.4-10.4) fL Immature Gran % (Auto) 0.1 % Neut % (Auto) 74.3 % Lymph % (Auto) 13.7 % [place] % (Auto) 9.1 % Eos % (Auto) 2.7 % Baso % (Auto) 0.1 % Neut # (Auto) 5.21 (1.4-6.5) K/uL Lymph # (Auto) 0.96 L (1.2-3.4) K/uL [place] # (Auto) 0.64 H (0.11-0.59) K/uL Eos # (Auto) 0.19 (0-0.5) K/uL Baso # (Auto) 0.01 (0-0.2) K/uL Immature Gran # (Auto) 0.01 (0.00-0.02) K/uL APTT (21.0-31.0) Seconds PTT Ratio Sodium 140 (136-145) mmol/L Potassium 3.7 (3.5-5.1) mmol/L Chloride 105 (98-107) mmol/L Carbon Dioxide 27 (21-32) mmol/L Anion Gap 8.0 (3-11) BUN 34 H (7-18) mg/dl Creatinine 1.65 H (0.6-1.2) mg/dl Est Cr Clr Drug Dosing 37.3 ml/min Est GFR ( Amer) 34.8 ml/min Est GFR (Non-Af Amer) 30.1 ml/min BUN/Creatinine Ratio 20.5 H (10-20) Glucose 119 H (70-99) mg/dl Calcium 9.4 (8.5-10.1) mg/dl Total Bilirubin (0.2-1) mg/dl AST (15-37) U/L ALT (12-78) U/L Alkaline Phosphatase (45-117) U/L Troponin I < 0.015 (0-0.045) ng/ml NT-Pro-B Natriuret Pep (0-900) pg/ml Total Protein (6.4-8.2) gm/dl Albumin (3.4-5.0) gm/dl Globulin (2.5-4.0) gm/dl Albumin/Globulin Ratio (0.9-2) Lipase (73-393) U/L TSH 2.100 (0.300-4.500) uIu/ml Anaplasma Smear Lyme Disease IgG Ab (Negative) Lyme Disease IgM Ab (Negative) COVID-19 Eval Order SARS-CoV-2 (PCR) (Negative) 11/18/20 11/18/20 11/18/20 Range/Units 20:40 20:40 17:56 WBC (4.8-10.8) K/uL RBC (4.2-5.4) M/uL Hgb (12.0-16.0) g/dL Hct (37-47) % MCV (80-100) fL MCH (25-34) pg MCHC (32-36) g/dL RDW Std Deviation (36.4-46.3) fL RDW Coeff of Adrian (11.5-14.5) % Plt Count (130-400) K/uL MPV (7.4-10.4) fL Immature Gran % (Auto) % Neut % (Auto) % Lymph % (Auto) % [place] % (Auto) % Eos % (Auto) % Baso % (Auto) % Neut # (Auto) (1.4-6.5) K/uL Lymph # (Auto) (1.2-3.4) K/uL [place] # (Auto) (0.11-0.59) K/uL Eos # (Auto) (0-0.5) K/uL Baso # (Auto) (0-0.2) K/uL Immature Gran # (Auto) (0.00-0.02) K/uL APTT (21.0-31.0) Seconds PTT Ratio Sodium (136-145) mmol/L Potassium (3.5-5.1) mmol/L Chloride (98-107) mmol/L Carbon Dioxide (21-32) mmol/L Anion Gap (3-11) BUN (7-18) mg/dl Creatinine (0.6-1.2) mg/dl Est Cr Clr Drug Dosing ml/min Est GFR ( Amer) ml/min Est GFR (Non-Af Amer) ml/min BUN/Creatinine Ratio (10-20) Glucose (70-99) mg/dl Calcium (8.5-10.1) mg/dl Total Bilirubin (0.2-1) mg/dl AST (15-37) U/L ALT (12-78) U/L Alkaline Phosphatase (45-117) U/L Troponin I (0-0.045) ng/ml NT-Pro-B Natriuret Pep (0-900) pg/ml Total Protein (6.4-8.2) gm/dl Albumin (3.4-5.0) gm/dl Globulin (2.5-4.0) gm/dl Albumin/Globulin Ratio (0.9-2) Lipase (73-393) U/L TSH (0.300-4.500) uIu/ml Anaplasma Smear Lyme Disease IgG Ab Negative (Negative) Lyme Disease IgM Ab Negative (Negative) COVID-19 Eval Order Covid19 at [facility] SARS-CoV-2 (PCR) NEGATIVE (Negative) 11/18/20 11/18/20 11/18/20 Range/Units 17:56 17:56 17:56 WBC (4.8-10.8) K/uL RBC (4.2-5.4) M/uL Hgb (12.0-16.0) g/dL Hct (37-47) % MCV (80-100) fL MCH (25-34) pg MCHC (32-36) g/dL RDW Std Deviation (36.4-46.3) fL RDW Coeff of Adrian (11.5-14.5) % Plt Count (130-400) K/uL MPV (7.4-10.4) fL Immature Gran % (Auto) % Neut % (Auto) % Lymph % (Auto) % [place] % (Auto) % Eos % (Auto) % Baso % (Auto) % Neut # (Auto) (1.4-6.5) K/uL Lymph # (Auto) (1.2-3.4) K/uL [place] # (Auto) (0.11-0.59) K/uL Eos # (Auto) (0-0.5) K/uL Baso # (Auto) (0-0.2) K/uL Immature Gran # (Auto) (0.00-0.02) K/uL APTT 36.5 H (21.0-31.0) Seconds PTT Ratio 1.4 Sodium 139 (136-145) mmol/L Potassium 4.0 (3.5-5.1) mmol/L Chloride 107 (98-107) mmol/L Carbon Dioxide 28 (21-32) mmol/L Anion Gap 4.0 (3-11) BUN 31 H (7-18) mg/dl Creatinine 1.60 H (0.6-1.2) mg/dl Est Cr Clr Drug Dosing 38.8 ml/min Est GFR ( Amer) 36.2 ml/min Est GFR (Non-Af Amer) 31.2 ml/min BUN/Creatinine Ratio 19.5 (10-20) Glucose 117 H (70-99) mg/dl Calcium 8.9 (8.5-10.1) mg/dl Total Bilirubin 0.5 (0.2-1) mg/dl AST 17 (15-37) U/L ALT 21 (12-78) U/L Alkaline Phosphatase 83 (45-117) U/L Troponin I < 0.015 (0-0.045) ng/ml NT-Pro-B Natriuret Pep 415 (0-900) pg/ml Total Protein 8.1 (6.4-8.2) gm/dl Albumin 3.8 (3.4-5.0) gm/dl Globulin 4.3 H (2.5-4.0) gm/dl Albumin/Globulin Ratio 0.9 (0.9-2) Lipase 143 (73-393) U/L TSH (0.300-4.500) uIu/ml Anaplasma Smear See Comment Lyme Disease IgG Ab (Negative) Lyme Disease IgM Ab (Negative) COVID-19 Eval Order SARS-CoV-2 (PCR) (Negative) 11/18/20 Range/Units 17:56 WBC 8.26 (4.8-10.8) K/uL RBC 3.50 L (4.2-5.4) M/uL Hgb 10.9 L (12.0-16.0) g/dL Hct 34.4 L (37-47) % MCV 98.3 (80-100) fL MCH 31.1 (25-34) pg MCHC 31.7 L (32-36) g/dL RDW Std Deviation 50.0 H (36.4-46.3) fL RDW Coeff of Adrian 14.1 (11.5-14.5) % Plt Count 215 (130-400) K/uL MPV 11.0 H (7.4-10.4) fL Immature Gran % (Auto) 0.1 % Neut % (Auto) 74.3 % Lymph % (Auto) 13.1 % [place] % (Auto) 10.3 % Eos % (Auto) 2.1 % Baso % (Auto) 0.1 % Neut # (Auto) 6.14 (1.4-6.5) K/uL Lymph # (Auto) 1.08 L (1.2-3.4) K/uL [place] # (Auto) 0.85 H (0.11-0.59) K/uL Eos # (Auto) 0.17 (0-0.5) K/uL Baso # (Auto) 0.01 (0-0.2) K/uL Immature Gran # (Auto) 0.01 (0.00-0.02) K/uL APTT (21.0-31.0) Seconds PTT Ratio Sodium (136-145) mmol/L Potassium (3.5-5.1) mmol/L Chloride (98-107) mmol/L Carbon Dioxide (21-32) mmol/L Anion Gap (3-11) BUN (7-18) mg/dl Creatinine (0.6-1.2) mg/dl Est Cr Clr Drug Dosing ml/min Est GFR ( Amer) ml/min Est GFR (Non-Af Amer) ml/min BUN/Creatinine Ratio (10-20) Glucose (70-99) mg/dl Calcium (8.5-10.1) mg/dl Total Bilirubin (0.2-1) mg/dl AST (15-37) U/L ALT (12-78) U/L Alkaline Phosphatase (45-117) U/L Troponin I (0-0.045) ng/ml NT-Pro-B Natriuret Pep (0-900) pg/ml Total Protein (6.4-8.2) gm/dl Albumin (3.4-5.0) gm/dl Globulin (2.5-4.0) gm/dl Albumin/Globulin Ratio (0.9-2) Lipase (73-393) U/L TSH (0.300-4.500) uIu/ml Anaplasma Smear Lyme Disease IgG Ab (Negative) Lyme Disease IgM Ab (Negative) COVID-19 Eval Order SARS-CoV-2 (PCR) (Negative) Diagnostic Findings Chest X-Ray 11/18/20 17:35 XR chest 1V portable CLINICAL HISTORY: Chest Pain COMPARISON STUDY: Chest radiograph March 25, 2008. FINDINGS: A cardiac monitoring device is incidentally noted. There is no pneumothorax or pleural effusion. No consolidation is identified. Note is made of mild cardiomegaly. There is slight interstitial prominence without overt pulmonary edema. IMPRESSION: Mild cardiomegaly. Pulmonary vascular congestion without overt pulmonary edema. ACT 112: Negative or not required by law. Electronically signed by: Michael Clark M.D. 11/18/2020 7:46 PM Venous Doppler Study 11/18/20 17:35 RIGHT LOWER EXTREMITY VENOUS DOPPLER CLINICAL HISTORY: Right lower extremity pain. COMPARISON STUDY: No previous studies for comparison. TECHNIQUE: Sonography of the deep venous system of the right lower extremity was performed. Compression and augmentation were evaluated. FINDINGS: The right common femoral, superficial femoral and popliteal veins were compressible. Augmentation was normal. Flow was shown within the deep calf vessels. There is a small complex right popliteal cyst. This measures 4.4 x 2 x 1 cm. Sonography of the lateral right calf at site of pain demonstrated subcutaneous edema. No fluid collection is identified. IMPRESSION: 1. No evidence of deep venous thrombus within the right lower extremity. 2. Subcutaneous edema of the lateral right calf at site of pain. No fluid collection. 3. Small complex right popliteal cyst. ACT 112: Negative or not required by law. Electronically signed by: Michael Clark M.D. 11/18/2020 7:16 PM PG Care Time/CCT Total # of Minutes Spent Total Time Spent with Patient: Total time spent is greater than 50% in coordination of care (as documented) at patient's floor/unit and/or counseling patient: Coding Level of Care Code 02965 Subseq Hosp Care Lvl 3 Diagnoses Cellulitis L03.90 Site of cellulitis: unspecified site HTN (hypertension) I10 Hypertension type: unspecified GERD (gastroesophageal reflux disease) K21.9 Hyperlipidemia E78.5 Breath shortness R06.02 FLAVIO (obstructive sleep apnea) G47.33 CKD (chronic kidney disease) N18.9 Atrial fibrillation I48.91 (1) Cellulitis Site of cellulitis: unspecified site Qualified Code(s): L03.90 - Cellulitis, unspecified (2) HTN (hypertension) Hypertension type: unspecified Qualified Code(s): I10 - Essential (primary) hypertension
[2020-11-19] MEDS ORDERED: ROSUVASTATIN CALCIUM 20 MG TAB PO SCH (21:00)
[2020-11-20] MEDS: ACETAMINOPHEN 325 MG TAB PO PRN (08:05)
--- NOTE | 2020-11-20 08:25 | Hospitalist Progress Note ---
Date of Service November 20, 2020 Assessment & Plan Admission and Anticipated Discharge Date Admission Date: November 19, 2020 Results & Data Results & Data ([facility]) Vital Signs (Past 12 Hours) Vital Signs Temp Pulse Pulse Resp BP Pulse Ox 11/20/20 07:38 36.7 C 60 16 158/76 H 93 11/20/20 07:12 36.6 C 60 16 160/78 H 94 11/19/20 21:52 36.8 C 66 20 133/74 95 PG Care Time/CCT Total # of Minutes Spent Total Time Spent with Patient: Total time spent is greater than 50% in coordination of care (as documented) at patient's floor/unit and/or counseling patient: Coding
[2020-11-20 08:43] LABS: Hematocrit (blood only) 34.8 % (37-47); Hemoglobin 11.1 g/dL (12.0-16.0); Mean Corpuscular Hemoglobin 31.1 pg (25-34); Mean Corpuscular Hgb Conc 31.9 g/dL (32-36); Mean Corpuscular Volume 97.5 fL (80-100); Mean Platelet Volume 10.6 fL (7.4-10.4); Platelet Count 224 K/uL (130-400); RDW Coefficient of Variation 13.7 % (11.5-14.5); RDW Standard Deviation 48.9 fL (36.4-46.3); Red Blood Count 3.57 M/uL (4.2-5.4); White Blood Count 6.24 K/uL (4.8-10.8)
[2020-11-20 09:17] LABS: BUN Creatinine Ratio 20.6 (10-20); Calcium 9.2 mg/dl (8.5-10.1); Creatinine Clr Calc Pharmacy 39.4 ml/min; Est GFR (African American) 37.3 ml/min; Est GFR (Non-African American) 32.2 ml/min
[2020-11-20] MEDS: APIXABAN 5 MG TABLET PO SCH (09:31)
[2020-11-20] MEDS: FLECAINIDE ACETATE 100 MG TABLET PO SCH (09:31)
[2020-11-20] MEDS: LOSARTAN POTASSIUM 50 MG TAB PO SCH (09:32)
[2020-11-20] MEDS: ISOSORBIDE MONO EXTENDED REL 30 MG TABCR PO SCH (09:32)
[2020-11-20] MEDS: PANTOprazole 40 MG TAB PO SCH (09:32)
[2020-11-20] MEDS: DAPTOmycin 325 MG in SYRINGE 0 ML IV SCH (09:42)
--- NOTE | 2020-11-20 11:17 | Discharge Summary ---
Date of Service November 20, 2020 Admission HPI Per Admitting Provider Maddi Hurst is a 75 y/o F w/ PMHx of recurrent lower extremity cellulitis, afib on Eliquis, FLAVIO on cpap, spinal stenosis (fusion L4-L5 2008), and pre DM who presents via referral from PCP w/ 1 day of R leg swelling/erythema and 4 pound weight gain x1 day. She has had several weeks of dyspnea on exertion and noted 2-3 days of orthopnea. Patient states that 2 days ago, she had a day of difficulty taking deep breaths, limited by mild chest pressure discomfort. Denied radiation, jaw/arm involvement. O2 sat dipped to 90 x 1 episode at home. Patient also had a prolonged half-day where she was unable to urinate and had suprapublic discomfort, since resolved. Never smoker. Denies having prior echo. Covid vaccinated Pfizer x2 in May. +chronic urinary incontinence but denies saddle anesthesia symptoms. No recent tick bites. Denies recent vigorous activity. 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 Denies dietary changes; she tries to watch her salt intake. ED course: Rocephin x1. IV Lasix. Doppler neg for DVT. CXR w/ pulm vasc congestion. Cr elevated to 1.6. ECG w/ new septal Q waves and T wave changes. Admission Exam Per Admitting Provider General: Grossly A&O. NAD. Cooperative. HEENT: Atraumatic, normocephalic. EOMI. PERRL. Pulm: CTAB. -wheezes, -rales, -rhonchi. No respiratory distress. Cardiac: RRR, -mrg. Radial pulses intact and symmetrical. 3+ LE edema on right, 2+ on left. DP pulse stronger on left. Abdominal: Nontender, nondistended, soft. Integ: erythema and warmth of anterior right aguillon. Musculoskeletal: Mild ttp of posterior knees, bilaterally, chronic. Chest wall ttp, not reproducible of same type of chest pressure she had previously experienced Neuro: Normal strength and sensation of lower extremities. Neg SLR. Principal Diagnosis Cellulitis Discharge Exam General: WN, WD, obese. NAD. Cooperative and up at side of bed cleaning up. Prior healed surgical scars to lumbar spine and L anterior chest wall from prior IV access Head atraumatic, normocephalic. Pupils equal and reactive Pulm: CTAB, diminished throughout, no wheezing/crackles/rales appreciated CV: RRR, no m/r/g, edema to LLE 1+, none on RLE with exception of some lymphedema to thigh GI: +BS, soft, non-tender, no guarding or rigidity Skin: warm, dry. RLE with erythema, tender to palpation primarily to lateral aspect RLE with palpable cord/area of fluid collection? (unchanged from prior but batch still operator to palpation). pulses weak but palpable, NVI Neuro: Normal strength and sensation of lower extremities. Neg SLR. Psych: AOx3 Discharge Data Allergies Allergy/AdvReac Type Severity Reaction Status Date / Time bee venom protein (honey bee) Allergy Severe Anaphylaxis Verified 11/18/20 19:09 Aminoglycosides Allergy Intermediate SEVERE RASH Verified 11/18/20 19:09 bacitracin Allergy Intermediate SEVERE RASH Verified 11/18/20 19:09 levofloxacin [From Levaquin] Allergy Intermediate RUPTURE Verified 11/18/20 19:09 ACHILLES neomycin Allergy Intermediate SEVERE RASH Verified 11/18/20 19:09 polymyxin B Allergy Intermediate SEVERE RASH Verified 11/18/20 19:09 Consultations 11/18/20 21:24 ED Decision to Admit Stat Ordered Studies Chest X-Ray 11/18/20 17:35 XR chest 1V portable CLINICAL HISTORY: Chest Pain COMPARISON STUDY: Chest radiograph March 25, 2008. FINDINGS: A cardiac monitoring device is incidentally noted. There is no pneumothorax or pleural effusion. No consolidation is identified. Note is made of mild cardiomegaly. There is slight interstitial prominence without overt pulmonary edema. IMPRESSION: Mild cardiomegaly. Pulmonary vascular congestion without overt pulmonary edema. ACT 112: Negative or not required by law. Electronically signed by: Michael Clark M.D. 11/18/2020 7:46 PM Venous Doppler Study 11/18/20 17:35 RIGHT LOWER EXTREMITY VENOUS DOPPLER CLINICAL HISTORY: Right lower extremity pain. COMPARISON STUDY: No previous studies for comparison. TECHNIQUE: Sonography of the deep venous system of the right lower extremity was performed. Compression and augmentation were evaluated. FINDINGS: The right common femoral, superficial femoral and popliteal veins were compressible. Augmentation was normal. Flow was shown within the deep calf vessels. There is a small complex right popliteal cyst. This measures 4.4 x 2 x 1 cm. Sonography of the lateral right calf at site of pain demonstrated subcutan eous edema. No fluid collection is identified. IMPRESSION: 1. No evidence of deep venous thrombus within the right lower extremity. 2. Subcutaneous edema of the lateral right calf at site of pain. No fluid collection. 3. Small complex right popliteal cyst. ACT 112: Negative or not required by law. Electronically signed by: Michael Clark M.D. 11/18/2020 7:16 PM Soft Tissue Ultrasound 11/20/20 12:21 US soft tissue ext ltd HISTORY: 75 years-old Female RLE lateral aspect. r/o abscess. ?phlebitis acute pain of the right calf with possible abscess COMPARISON: None TECHNIQUE: Multiple real-time sonographic images of the right calf were obtained assessing grayscale appearance and color flow FINDINGS: Increased echogenicity of the subcutaneous tissues with moderate subcutaneous edema. No focal fluid collection. IMPRESSION: Moderate subcutaneous edema without focal fluid collection identified. ACT 112: Negative or not required by law. The above report was generated using voice recognition software. It may contain grammatical, syntax or spelling errors. Electronically signed by: Herbie Gutierrez M.D. 11/20/2020 1:48 PM Hospital Course (1) Cellulitis: 75 y/o F w/ recurrent cellulitis on daily Bactrim prevention who presents w/ acute RLE cellulitis w/ some concerns for hypoxia / dyspnea with sob w exertion (talks of cath w her cheese blender in [place]). Past week bites by mosquitos to that leg lateral aspect where redness started (then traveled in car approx 45 min home but does keep elevated and uses stockings as much as possible) Hx PAD and ablations for both legs however foot not erythematous at this time and located to aguillon at this time. Rec'd following up with her cheese blender as he did the ablations and also concerns for CANTU and possible need for repeat cardiac cath as it has been several years (no hx stent, trop negative x2) US Venous Doppler: 1. No evidence of deep venous thrombus within the right lower extremity. 2. Subcutaneous edema of the lateral right calf at site of pain. No fluid collection. 3. Small complex right popliteal cyst. Given Rocephin in ER but will place on Dapto (vanco avoided given BMI) in patient w/ hx MRSA and requiring Vancomycin. Marked area of cellulitis--> Improved Transitioning to PO Doxy to complete 10 day course but also added Keflex 500mg TID as well for strep coverage given previously onBactrim for proph however did have improvement with the Vanco No blood cultures on admit Repeat US without abscess or fluid collection, possible phlebitis. Educated to keep elevate, heat to affected area as well To have f/u with her cheese blender/vascular surgeon for further arterial studies if this recurs as well as discussed cath for CANTU symptoms. Stable for d/c. ECHO without wma. BNP without elevation. Follow up with her ID doc as well for chronic suppression after current course complete (2) HTN (hypertension): Controlled Held HCTZ for dehydration/elevated Cr on admission (improved but elevated and may be baseline) Resume tomorrow (3) GERD (gastroesophageal reflux disease): Continued PPI (4) Hyperlipidemia: Held statin while on Dapto, to be resumed at discahrge (5) Atrial fibrillation: hx of such however has been sinus rhythm --?if possible afib/rvr prior to admission with current infection leading to rapid weight gain possible? Regular on examination but not on monitored bed. denied palpitations but stated "not feeling well prior to driving back from event past weekend) follows with [facility] remains on flecainide, [place] should follow up regarding arterial studies/cardiac cath as above --> no acute inpatient need for vascular consultation consider adding ASA if no prior hx bleeding? vs pletal at outpatient followup (6) Breath shortness: reported with weight gain on admission BNP without elevation ECHO normal LV size/systolic function. EF 60-65% no wma. Mild concentric LVH, mild MR, moderately dilated L atrium Has been worsening over past month per patient's she has cared for and talked about her cheese blender wanting to repeat a cardiac cath as she states she had a stress test not too far in the distant past but unsure of timing --> had lexiscan 2016 and cath 2017 30% rca Trop negative x 2 No further SOB reported -- did get dose of lasix 20mg x 1 on admission saturating on room air -- lungs clear but diminished on examination No further SOB reported and breathing stable (7) FLAVIO (obstructive sleep apnea): continue home qhs cpap 9 mmHg (8) CKD (chronic kidney disease): reported knowing Cr elevated but unsure baseline -- unsure if NELSY or about her baseline but she did note was "back to normal" at one point Slightly improved and helf HCTZ for today, to resume tomorrow and f/u with her PCP D/c meloxicam and educated patient (9) B12 deficiency: low normal, possible start of deficiency to start 1000mcg at d/c and f/u PCP (10) Obesity: weight loss/dietary changes recommended Total Time Total Time Spent Total Time Spent (In Minutes): 60 Discharge Plan Discharge Items Patient Disposition: Home - Self-Care Reason For Visit: RLE CELLULITIS AND DYSPNEA ON EXERTION Discharge Diagnosis: You have been hospitalized for an acute medical problem. During your stay at [facility], we have made an effort to correct the problem that brought you to the hospital while keeping you as comfortable as possible. Medications were used to bring your condition under control and your discharge instructions will include directions for any medications you should take after leaving the hospital. Please make sure you see your Primary Care Provider as part of your follow up plan. Activity: Resume your previous activity Non-emergency contact: Primary Care Provider and Door Patcher Call non-emergency contact if: you have any medication questions, your symptoms worsen, your pain is not controlled and you have a fever Follow-up/Referrals: Dalila Wick MD [Primary Care Provider] - 11/26/20 12:45 pm (WITH DR LARA) Julia Baca MD [Outside Practitioners] - 11/24/20 3:45 pm Diet: Heart Healthy Addtl Attending Provider Instructions: You have been hospitalized for a cellulitis. You were treated with IV antibiotics and have been sent on Doxycycline 100mg by mouth TWICE daily for total of 10 days. You will have your BACTRIM discontinued during this time and you should follow up with infectious disease about possibly switching to this for prevention in the future. Please drink with full glass of water to prevent any esophagus irritation. You may take a probiotic while on this as you have done in the past. You have also been sent keflex 500mg three times daily as well to cover for strep bacteria as well to be safe. You should continue heat and elevation for possible phlebitits. You had weak but palpable pulses and given your history of peripheral arterial disease and lymphedema it is recommended that you follow up with Dr Baca about further arterial studies and possible need for stent in the future. This is not acute limb at this time but obviously if does not resolve, or recurs, would highly suggest need better blood flow to that area. Repeat ultrasound was completed to ensure no abscess formation, which did not show any abscess. In regards to your shortness of breath, this could be from fluid accumulation from the cellulitis but a BNP was checked and did not indicate any signs of hear t failure. However, given your reports of shortness of breath with exertion and talks of repeat cardiac catheterization it would be prudent to do this for further evaluation and possible treatment with stent if you have any stenosis in coronary arteries. Troponin was checked during admission to see about any damage to cardiac/heart muscle and these were also negative. ECHOcardiogram (ultrasound) of your heart was performed which did not show any significant valvular issues. You kidney function stayed stable but has been elevated. Recommend holding your HCTZ for today but can resumed tomorrow. As discussed, you should STOP YOUR MELOXICAM INDEFINITELY to prevent not only increased bleeding risk since you have been on Eliquis, but also to prevent kidney damage. You should continue to use Tylenol as needed for pain control. Of note, given your neuropathy type symptoms, a B12 level was checked and while in normal limits, it was borderline low and it is recommended to take daily B12 supplementation to help with these symptoms. You should take 1000mcg daily as this could be the start of a deficiency given your age and can contribute to numbness/tingling as well as anemia (which can cause worsening shortness of breath). Please follow up with your PCP in the next week to monitor your progress as well as Dr Baca for further evaluation as discussed. Please return to the closest emergency department with any fever, chills, chest pain, shortness of breath, increased weight gain, increased redness/swelling, uncontrolled pain or for any other symptoms that are concerning for you. It has been a pleasure being a part of the medical team while you have been in the hospital. Take care! Pending Studies at Discharge: No Stand-Alone Forms: My [facility] Medications and DC Order Prescriptions: New doxycycline hyclate 100 mg capsule 100 mg PO BID 10 Days Qty: 20 RF: 0 cyanocobalamin (vitamin B-12) 1,000 mcg capsule 1,000 mcg PO DAILY Qty: 30 RF: 0 cephalexin 500 mg capsule 500 mg PO TID 10 Days Qty: 30 RF: 0 Continued isosorbide mononitrate 30 mg Tablet Extended Release 24 Hr 30 mg PO QAM RF: 0 hydrochlorothiazide 25 mg Tablet 25 mg PO QAM RF: 0 losartan 100 mg Tablet 100 mg PO QAM RF: 0 rosuvastatin 40 mg Tablet 40 mg PO HS RF: 0 omeprazole 20 mg Tablet,Delayed Release (Dr/Ec) 20 mg PO QAM RF: 0 acetaminophen 500 mg Tablet 1,000 mg PO Q6H RF: 0 flecainide 100 mg tablet 100 mg PO BID RF: 0 epinephrine [EpiPen] 0.3 mg/0.3 mL auto-injector 0.3 mg IM UD RF: 0 Discontinued meloxicam 15 mg Tablet 15 mg PO QAM RF: 0 sulfamethoxazole-trimethoprim [Bactrim DS] 800-160 mg Tablet 0.5 tab PO QAM RF: 0 Discharge Orders: Discharge Order (Routine); Ordered 11/20/20 Ordered By: Phuong Colunga Admission Data Admit Date/Time: 11/19/20 16:58 Attending Provider: Wellington Rubin Admit Provider: Anand Knox Primary Care Provider: Dalila Wick Other Providers: Annalisa Mckeon Other Interventions: Discharge Summary Assessment (RN) Last Done: 11/20/20 14:36 Supervising Physician Co-Signing Physician Notes Attending Attestation - Patient seen/examined, chart reviewed in detail, discharge care plan d/w PA Phuong Colunga. I agree w/ the camejo components of her discharge documentation. 75yo female with morbid obesity, PAF, CKD stage 3b, HTN, FLAVIO - presented with RLE cellulitis of the aguillon. Improved with IV abx. Multiple imaging studies failed to show drainable abscess or DVT. Remained afebrile with stable vitals during the visit. Discharge exam - gen - NAD, obese neck - no JVD mouth - MMM heart - RRR, s1 s2 lungs - CTA b/l abd - soft NT ND BS+ ext - trace edema b/l; pulses b/l feet 2+ skin - resolving erythema of right aguillon extending from mid-calf down to just above the ankle; on distal lateral aguillon there is an area of palpable firmness (?superficial phlebitis) but no discrete abscess; this area is minimally tender to palpation Patient will d/c home on flex and doxycycline. Of note - focal u/s of the area of palpable firmness on distal lateral right aguillon did not show abscess or phlebitis. She will continue warm compresses to this area post-discharge. Agree w/ plan for patient to f/u with cardiology post-discharge for dyspnea issue. Wellington Rubin MD Coding Level of Care Code D/C DAY MANAGEMENT >30 MINS Diagnoses Cellulitis L03.90 Site of cellulitis: unspecified site HTN (hypertension) I10 Hypertension type: unspecified GERD (gastroesophageal reflux disease) K21.9 Hyperlipidemia E78.5 Atrial fibrillation I48.91 Breath shortness R06.02 FLAVIO (obstructive sleep apnea) G47.33 CKD (chronic kidney disease) N18.9 B12 deficiency E53.8 Obesity E66.9
--- NOTE | 2020-11-20 13:49 | Ultrasound Report ---
US soft tissue ext ltd HISTORY: 75 years-old Female RLE lateral aspect. r/o abscess. ?phlebitis acute pain of the right jc f with possible abscess COMPARISON: None TECHNIQUE: Multiple real-time sonographic images of the right calf were obtained assessing grayscale appearance and color flow FINDINGS: Increased echogenicity of the subcutaneous tissues with moderate subcutaneous edema. No focal fluid c ollection. IMPRESSION: Moderate subcutaneous edema without focal fluid collection identified. ACT 112: Negative or not required by law. The above report was generated using voice recognition software. It may contain grammatical, syntax o r spelling errors. Electronically signed by: Herbie Gutierrez M.D. 11/20/2020 1:48 PM
== END 2020-11-20 15:30 | disposition home or self-care (01) | DRG 602 ==
LOC: 3N 15:45 → ED 15:45 → SUATTDRO 22:25 → 3N 23:00

== ENCOUNTER 2021-06-18 11:39 | Inpatient (IN) ==
[2021-06-18] MEDS ORDERED: DAPTOmycin 325 MG in SYRINGE 0 ML IV ONE (12:05)
[2021-06-18] MEDS ORDERED: ACETAMINOPHEN 1,000 MG/100 ML VIAL IV STA (12:05)
[2021-06-18] MEDS ORDERED: PIPERACILL/TAZOBAC CONSULT ACTIVE PRN (12:05)
[2021-06-18] MEDS ORDERED: SODIUM CHLORIDE 0.9% 500 ML IV ONE (12:05)
[2021-06-18] MEDS ORDERED: PIPERACILLIN/TAZOBACTAM 4.5 GM/120 ML BAG IV ONE (12:05)
[2021-06-18 12:55] LABS: Basophils # (auto) 0.01 K/uL (0-0.2); Basophils % (auto) 0.1 %; Eosinophils # (auto) 0.14 K/uL (0-0.5); Eosinophils % (auto) 1.9 %; Hematocrit (blood only) 32.7 % (37-47); Hemoglobin 10.7 g/dL (12.0-16.0); Immature Granulocytes # (auto) 0.01 K/uL (0.00-0.02); Immature Granulocytes % (auto) 0.1 %; Lymphocytes # (auto) 1.29 K/uL (1.2-3.4); Lymphocytes % (auto) 17.2 %; Mean Corpuscular Hemoglobin 30.1 pg (25-34); Mean Corpuscular Hgb Conc 32.7 g/dL (32-36); Mean Corpuscular Volume 92.1 fL (80-100); Mean Platelet Volume 10.6 fL (7.4-10.4); Monocytes # (auto) 0.57 K/uL (0.11-0.59); Monocytes % (auto) 7.6 %; Neutrophils # (auto) 5.47 K/uL (1.4-6.5); Neutrophils % (auto) 73.1 %; Platelet Count 285 K/uL (130-400); RDW Coefficient of Variation 15.1 % (11.5-14.5); RDW Standard Deviation 51.5 fL (36.4-46.3); Red Blood Count 3.55 M/uL (4.2-5.4); White Blood Count 7.49 K/uL (4.8-10.8)
--- NOTE | 2021-06-18 13:08 | XRay Report ---
XR tibia fibula LT 2V HISTORY: 76 years-old Female pain, swelling, cellulitis, eval for osseous invol acute pain of the le ft lower extremity with soft tissue swelling COMPARISON: None TECHNIQUE: 2 views of the left tibia and fibula FINDINGS: Diffuse soft tissue swelling. Subcentimeter soft tissue calcifications of the medial lower leg. 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 No acute fracture, dislocation or osseous erosion. IMPRESSION: Soft tissue swelling without acute osseous abnormality. ACT 112: Negative or not required by law. The above report was generated using voice recognition software. It may contain grammatical, syntax o r spelling errors. Electronically signed by: Herbie Gutierrez M.D. 06/18/2021 1:07 PM
[2021-06-18 13:28] LABS: Albumin Globulin Ratio 1.2 (0.9-2); BUN Creatinine Ratio 21.3 (10-20); Bilirubin,Total 0.4 mg/dl (0.2-1.0); Calcium 9.3 mg/dl (8.5-10.1); Creatinine Clr Calc Pharmacy 54.3 ml/min; Est GFR (African American) 57.7 ml/min; Est GFR (Non-African American) 49.8 ml/min; Globulin 3.3 gm/dl (2.5-4.0); Potassium 3.9 mmol/L (3.5-5.1); Total Protein 7.3 gm/dl (6.0-8.3)
--- NOTE | 2021-06-18 13:55 | Emergency Department Note ---
Impression & Plan Cellulitis of left lower leg, CKD (chronic kidney disease), Recurrent cellulitis of lower extremity ED Provider Note NAME: KALIE LIMA AGE: 76 SEX: F ARRIVES VIA: Walk-In INFORMANT: Patient ED PROVIDER(S): Mario Isbell MD CHIEF COMPLAINT: Cellulitis, referred. PLAN: Disposition: Admit MEDICAL DECISION MAKING: The patient is a pleasant 76-year-old woman with a past medical history of CKD, FLAVIO, hypertension, hyperlipidemia, GERD and recurrent cellulitis who presents to the emergency department with worsening pain and lack of improvement of left lower leg cellulitis after being seen in the emergency department by this provider on 06/13 and started on treatment with Keflex and doxycycline. Patient's symptoms occurred in the setting of having recent left external iliac vein stent placed. The patient had an ultrasound on her last ED visit which was negative for DVT. Of note the patient then did follow-up with her surgeon yes terday and repeat ultrasound was reassuring and showed appropriately functioning stent. He did not feel that her cellulitis was related to her recent procedure appears coincidental. Patient also was seen by her PCP today and was referred to the emergency department due to lack of improvement in her pain or admission and IV antibiotics. Patient denies any fevers but has felt malaise and feverish . She reports lack of appetite but denies vomiting or diarrhea. She denies chest pain or shortness of breath. On arrival the patient is fatigued appearing but no distress, afebrile stable vital signs. On exam the patient has warm blanchable erythema of the right lower with tenderness throughout. There is no crepitus. Area of erythema does not appear to have progressed much beyond previously demarcated area however has not shown any significant improvement either. WBC and platelets within normal limits. H/H similar to prior values. Chemistry without metabolic acidosis. Creatinine is 1, improved from prior range of values in the setting of patient's history of CKD. Lactic acid 1.3, within normal limits. LFTs are unremarkable. Lipase is not elevated. Procalcitonin is undetectable. COVID-19 RNA, NAAT test was negative. Plain film was negative for bony involvement and otherwise show soft tissue edema. Given patient's lack of improvement the patient was treated empirically with broad-spectrum antibiotics to initiate treatment with Zosyn and daptomycin. The patient agrees with plan for admission for further management. Case was d/w Dr. Carriz[place] [facility] [place] who will evaluate the patient for admission. Triage Nursing notes reviewed and agree them. Prior medical records reviewed Vital Signs: reviewed and remarkable for no significant abnormalities Differential diagnosis: Cellulitis, abscess, MRSA infection, DVT, necrotizing fasciitis, dermatitis, drug eruption, allergic reaction, as well as other pathologies. ER treatment provided: See below. Diagnostics interpreted by me: ECG: NSR, 61 bpm, no ectopy, LVH, incomplete RBBB, no overt ST elevation or depression. Cardiac Monitoring: An order for continuous cardiac monitoring was placed and demonstrated NSR, 61 bpm, no ectopy,. Laboratory studies: See below Imaging studies: See below Consultation(s): Dr. Carrizales [facility] [place]. HPI: The patient is a pleasant 76-year-old woman with a past medical history of CKD, FLAVIO, hypertension, hyperlipidemia, GERD and recurrent cellulitis who presents to the emergency department with worsening pain and lack of improvement of left lower leg cellulitis after being seen in the emergency department by this provider on 06/13 and started on treatment with Keflex and doxycycline. Patient's symptoms occurred in the setting of having recent left external iliac vein stent placed. The patient had an ultrasound on her last ED visit which was negative for DVT. Of note the patient then did follow-up with her surgeon yesterday and repeat ultrasound was reassuring and showed appropriately functioning stent. He did not feel that her cellulitis was related to her r ecent procedure appears coincidental. Patient also was seen by her PCP today and was referred to the emergency department due to lack of improvement in her pain or admission and IV antibiotics. Patient denies any fevers but has felt malaise and feverish. She reports lack of appetite but denies vomiting or diarrhea. She denies chest pain or shortness of breath. ROS: See above HPI for pertinent positives & negatives. A total of 10 systems reviewed and were otherwise negative. VITALS:See Below PHYSICAL EXAMINATION: GENERAL: Awake, alert, fatigued-appearing, in no distress HENT: Normocephalic, atraumatic. Oropharynx with dry mucous membranes and otherwise unremarkable. EYES: Normal conjunctiva. Sclera non-icteric. NECK: Supple. No nuchal rigidity. FROM. No JVD. RESPIRATORY: Clear to auscultation. CARDIAC: Regular rate, normal rhythm. Extremities warm and well perfused. Pulses equal. ABDOMEN: Soft, non-distended. No tenderness to palpation. No rebound or guarding. No masses. RECTAL: Deferred. MUSCULOSKELETAL: Chest examination reveals no tenderness. The back is symmetrical on inspection without obvious abnormality. There is no CVA tenderness to palpation. No joint edema. LOWER EXTREMITIES: Warm blanchable erythema of the right lower with tenderness throughout. There is no crepitus. Area of erythema does not appear to have progressed much beyond previously demarcated area however has not shown any significant improvement either. NEURO: Normal sensorium. No sensory or motor deficits noted. SKIN: No rash or jaundice noted. Mario Isbell MD Past Med/Surg History Medical History Arthritis CAD (coronary artery disease) Deep vein thrombosis DURING "MANY YEARS AGO">BLOOD THINNER AT THAT TIME (SINCE DISCONTINUED) Degenerative disc disease GERD (gastroesophageal reflux disease) History of cellulitis LOWER LEGS (REASON FOR BACTRIM) Hx of migraines Hyperlipidemia Hypertension Prediabetes DIET CONTROLLED Sleep apnea CPAP Surgical History Fusion of spine LUMBAR History of appendectomy History of arthroscopy LEFT KNEE X 1/RT KNEE X 2 History of cardiac cath OVER 5 YEARS AGO (NO STENTS PLACED) [place]TO[place] History of cholecystectomy History of colonoscopy WITH POLYPS REMOVED History of esophagogastroduodenoscopy (EGD) History of hysterectomy History of tooth extraction Hx of left cataract extraction Family History Mother Family history of diabetes mellitus Social History Smoking Status: Never smoker Second Hand Exposure: No; Do You Dip or Chew Tobacco: No; Tobacco Cessation Education Requested by Patient: No Hx Alcohol Use: No Hx Substance Use: No Preferred Language: Kinyarwanda Communication Ability: Effective Lay Health Advocate Required: No Beliefs That Will Affect Care: None marital status: Current Living Situation: Spouse Current Living Situation Comment: lives w/ How many Children do You have: 3 Other Information That Helps Us Care for You: No Feels Safe at Home: Yes Safety Concerns: Feels Safe At This Time Assistive Devices: Glasses and Walker Assistive Devices Comment: own Rollator walker here at bedside Allergies Allergies Allergy/AdvReac Type Severity Reaction Status Date / Time bee venom protein (honey bee) Allergy Severe Anaphylaxis Verified 06/18/21 14:27 Aminoglycosides Allergy Intermediate SEVERE RASH Verified 06/18/21 14:27 bacitracin Allergy Intermediate SEVERE RASH Verified 06/18/21 14:27 levofloxacin [From Levaquin] Allergy Intermediate RUPTURE Verified 06/18/21 14:27 ACHILLES neomycin Allergy Intermediate SEVERE RASH Verified 06/18/21 14:27 polymyxin B Allergy Intermediate SEVERE RASH Verified 06/18/21 14:27 Home Meds Home Medications Medication Instructions Recorded Confirmed acetaminophen 500 mg tablet 1,000 mg PO Q6H 08/14/19 06/18/21 hydrochlorothiazide 25 mg tablet 25 mg PO QAM 08/14/19 06/18/21 isosorbide mononitrate 30 mg 30 mg PO QAM 08/14/19 06/18/21 tablet,extended release 24 hr losartan 100 mg tablet 100 mg PO QAM 08/14/19 06/18/21 omeprazole 20 mg tablet,delayed 20 mg PO QAM 08/14/19 06/18/21 release rosuvastatin 40 mg tablet 40 mg PO HS 08/14/19 06/18/21 epinephrine 0.3 mg/0.3 mL 0.3 mg IM UD 11/18/20 06/18/21 injection, auto-injector (EpiPen) flecainide 100 mg tablet 100 mg PO BID 11/18/20 06/18/21 apixaban 5 mg tablet (Eliquis) 5 mg PO BID 06/18/21 06/18/21 Previous Rx's Medication Instructions Recorded cephalexin 500 mg capsule 500 mg PO TID 10 Days #30 cap 06/13/21 doxycycline hyclate 100 mg tablet 100 mg PO BID 10 Days #20 tab 06/13/21 Results & Data (ED) Vital Signs Vital Signs - 24 hr 06/18/21 11:41 06/18/21 12:45 06/18/21 13:07 Temperature 36.3 C L Temperature Source Temporal Artery Scan Pulse Rate 72 72 61 Pulse Rate from SpO2 Sensor 61 Pulse Rhythm Regular Respiratory Rate 20 20 17 Respiratory Effort / Characteristics Non-Labored Spontaneous Respiratory Depth Normal Respiratory Pattern Regular Blood Pressure 190/69 H 169/57 H Blood Pressure Mean 109 94 Blood Pressure Position Sitting Pulse Oximetry 98 98 97 Oxygen Delivery Method Room Air Room Air Sepsis Recent Fever Within 48 Hours No Sepsis New/Unexplained Change in Mental Status N/A Sepsis Action Taken by Nursing No Action Required 06/18/21 14:00 Temperature Temperature Source Pulse Rate 60 Pulse Rate from SpO2 Sensor 60 Pulse Rhythm Respiratory Rate 20 Respiratory Effort / Characteristics Respiratory Depth Respiratory Pattern Blood Pressure Blood Pressure Mean Blood Pressure Position Pulse Oximetry 96 Oxygen Delivery Method Sepsis Recent Fever Within 48 Hours Sepsis New/Unexplained Change in Mental Status Sepsis Action Taken by Nursing Laboratory Data Attestation: I reviewed the patient's lab results. Result diagrams: 06/18/21 12:41 06/18/21 12:41 Lab Results 06/18/21 06/18/21 06/18/21 Range/Units 12:32 12:40 12:41 WBC (4.8-10.8) K/uL RBC (4.2-5.4) M/uL Hgb (12.0-16.0) g/dL Hct (37-47) % MCV (80-100) fL MCH (25-34) pg MCHC (32-36) g/dL RDW Std Deviation (36.4-46.3) fL RDW Coeff of Adrian (11.5-14.5) % Plt Count (130-400) K/uL MPV (7.4-10.4) fL Immature Gran % (Auto) % Neut % (Auto) % Lymph % (Auto) % [place] % (Auto) % Eos % (Auto) % Baso % (Auto) % Neut # (Auto) (1.4-6.5) K/uL Lymph # (Auto) (1.2-3.4) K/uL [place] # (Auto) (0.11-0.59) K/uL Eos # (Auto) (0-0.5) K/uL Baso # (Auto) (0-0.2) K/uL Immature Gran # (Auto) (0.00-0.02) K/uL Sodium (136-145) mmol/L Potassium (3.5-5.1) mmol/L Chloride (98-107) mmol/L Carbon Dioxide (21-32) mmol/L Anion Gap (3-11) BUN (6-23) mg/dl Creatinine (0.6-1.2) mg/dl Est Cr Clr Drug Dosing ml/min Est GFR ( Amer) ml/min Est GFR (Non-Af Amer) ml/min BUN/Creatinine Ratio (10-20) Glucose (70-99(Fasting)) mg/dl Lactate 1.3 (0.4-2.0) mmol/L Calcium (8.5-10.1) mg/dl Total Bilirubin (0.2-1.0) mg/dl AST (13-39) U/L ALT (7-52) U/L Alkaline Phosphatase (34-104) U/L Total Protein (6.0-8.3) gm/dl Albumin (3.4-5.0) gm/dl Globulin (2.5-4.0) gm/dl Albumin/Globulin Ratio (0.9-2) Lipase (11-82) U/L Procalcitonin < 0.05 (0-0.5) ng/ml SARS-CoV-2, RNA, NAAT NEGATIVE (NEGATIVE) 06/18/21 06/18/21 Range/Units 12:41 12:41 WBC 7.49 (4.8-10.8) K/uL RBC 3.55 L (4.2-5.4) M/uL Hgb 10.7 L (12.0-16.0) g/dL Hct 32.7 L (37-47) % MCV 92.1 (80-100) fL MCH 30.1 (25-34) pg MCHC 32.7 (32-36) g/dL RDW Std Deviation 51.5 H (36.4-46.3) fL RDW Coeff of Adrian 15.1 H (11.5-14.5) % Plt Count 285 (130-400) K/uL MPV 10.6 H (7.4-10.4) fL Immature Gran % (Auto) 0.1 % Neut % (Auto) 73.1 % Lymph % (Auto) 17.2 % [place] % (Auto) 7.6 % Eos % (Auto) 1.9 % Baso % (Auto) 0.1 % Neut # (Auto) 5.47 (1.4-6.5) K/uL Lymph # (Auto) 1.29 (1.2-3.4) K/uL [place] # (Auto) 0.57 (0.11-0.59) K/uL Eos # (Auto) 0.14 (0-0.5) K/uL Baso # (Auto) 0.01 (0-0.2) K/uL Immature Gran # (Auto) 0.01 (0.00-0.02) K/uL Sodium 139 (136-145) mmol/L Potassium 3.9 (3.5-5.1) mmol/L Chloride 106 (98-107) mmol/L Carbon Dioxide 27 (21-32) mmol/L Anion Gap 6 (3-11) BUN 23 (6-23) mg/dl Creatinine 1.08 (0.6-1.2) mg/dl Est Cr Clr Drug Dosing 54.3 ml/min Est GFR ( Amer) 57.7 ml/min Est GFR (Non-Af Amer) 49.8 ml/min BUN/Creatinine Ratio 21.3 H (10-20) Glucose 95 (70-99(Fasting)) mg/dl Lactate (0.4-2.0) mmol/L Calcium 9.3 (8.5-10.1) mg/dl Total Bilirubin 0.4 (0.2-1.0) mg/dl AST 14 (13-39) U/L ALT 12 (7-52) U/L Alkaline Phosphatase 67 (34-104) U/L Total Protein 7.3 (6.0-8.3) gm/dl Albumin 4.0 (3.4-5.0) gm/dl Globulin 3.3 (2.5-4.0) gm/dl Albumin/Globulin Ratio 1.2 (0.9-2) Lipase 20 (11-82) U/L Procalcitonin (0-0.5) ng/ml SARS-CoV-2, RNA, NAAT (NEGATIVE) Administered Medications Acetaminophen (Acetaminophen 325 Mg Tab) 650 mg PO Q6H PRN PRN Reason: Pain or Fever Stop: 07/18/21 16:02 Last Admin: 06/18/21 21:11 Dose: 650 mg Documented by: [id number] Apixaban (Apixaban 5 Mg Tablet) 5 mg PO BID [facility] Stop: 07/18/21 20:59 Last Admin: 06/18/21 21:11 Dose: 5 mg Documented by: [id number] Flecainide Acetate (Flecainide Acetate 100 Mg Tablet) 100 mg PO BID [facility] Stop: 07/18/21 20:59 Last Admin: 06/18/21 21:12 Dose: 100 mg Documented by: [id number] Melatonin (Melatonin 3 Mg Tab) 3 mg PO HS PRN PRN Reason: Sleep Stop: 07/18/21 22:42 Last Admin: 06/18/21 22:56 Dose: 3 mg Documented by: [id number] Discontinued Medications Sodium Chloride (Nss) 500 mls @ 999 mls/hr IV .Q31M ONE Stop: 06/18/21 12:35 Last Infusion: 06/18/21 13:09 Dose: 0 mls/hr Documented by: [id number] Admin: 06/18/21 12:46 Dose: 999 mls/hr Documented by: [id number] Acetaminophen (Ofirmev) 1,000 mg in 100 mls @ 400 mls/hr IV NOW STA Stop: 06/18/21 12:19 Last Infusion: 06/18/21 13:03 Dose: 0 mls/hr Documented by: [id number] Admin: 06/18/21 12:46 Dose: 400 mls/hr Documented by: [id number] Daptomycin 325 mg/ Syringe 6.5 mls @ 3.25 mls/min IV NOW ONE; Protocol Stop: 06/18/21 12:06 Last Admin: 06/18/21 13:44 Dose: 3.25 mls/min Documented by: [id number] Piperacillin Sod/Tazobactam Sod (Zosyn) 4.5 gm in 120 mls @ 240 mls/hr IV NOW ONE Stop: 06/18/21 12:34 Last Infusion: 06/18/21 13:44 Dose: 0 mls/hr Documented by: [id number] Admin: 06/18/21 13:09 Dose: 240 mls/hr Documented by: [id number] Imaging Data Radiologist's Impression: Tibia/Fibula X-Ray 06/18/21 12:27 XR tibia fibula LT 2V HISTORY: 76 years-old Female pain, swelling, cellulitis, eval for osseous invol acute pain of the left lower extremity with soft tissue swelling COMPARISON: None TECHNIQUE: 2 views of the left tibia and fibula FINDINGS: Diffuse soft tissue swelling. Subcentimeter soft tissue calcifications of the medial lower leg. 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 No acute fracture, dislocation or osseous erosion. IMPRESSION: Soft tissue swelling without acute osseous abnormality. ACT 112: Negative or not required by law. The above report was generated using voice recognition software. It may contain grammatical, syntax or spelling errors. Electronically signed by: Herbie Gutierrez M.D. 06/18/2021 1:07 PM Vascular Ultrasound 06/18/21 14:24 US extremity non-vascular ltd CLINICAL HISTORY: Left medial aguillon swelling- Concern for abscess COMPARISON STUDY: Left tibia/fibula 06/18/2021. FINDINGS: Real-time sonographic imaging of the left lower leg was performed with public health representative images submitted. There is subcutaneous edema and multiple varicosities. No loculated fluid collections to suggest an abscess. IMPRESSION: Extensive subcutaneous edema in the left lower leg. No abscess ACT 112: Negative or not required by law. Electronically signed by: Oleg Lawson M.D. 06/18/2021 6:12 PM Discharge Plan Visit Data Chief Complaint: Leg Injury/Pain Stated Complaint: BACK PAIN, LEG PAIN ED Provider: Mario Isbell Discharge Problem: Cellulitis of left lower leg, CKD (chronic kidney disease), Recurrent cellulitis of lower extremity Patient Disposition: Admitted As Inpatient Discharge Instructions Interventions: ED Discharge Assessment Last Done: 06/18/21 15:43 Discharge Problem: CKD (chronic kidney disease) Qualifiers: Chronic kidney disease stage: unspecified stage Qualified Code(s): N18.9 - Chronic kidney disease, unspecified
--- NOTE | 2021-06-18 14:45 | History & Physical Report ---
Date of Service June 18, 2021 Assessment & Plan (1) Cellulitis of left lower leg: Plan: Recurrent episodes which were thought to be due to venous status. - Failed outpatient Keflex and doxycycline - Daptomycin & Zosyn ordered in the ER -> Will continue daptomycin, but stop Zosyn if no abscess noted. - Stat LLE u/s ordered for possible abscess (2) CKD (chronic kidney disease): Plan: Baseline Cr ~1.1, though higher in 10/2020 (~1.5 then). CKD Stage II. - Monitor Cr - Renally dose medications (3) Atrial fibrillation: Plan: Hx of. Presently in sinus rhythm. - Continue home flecainide - Hold Eliquis until u/s has returned to ensure she does not need surgical intervention (4) CAD (coronary artery disease): Plan: Per patient, she had a nuc med study done just this past week which showed an area of prior infarct, but no reversible defects. - Continue home Imdur, losartan, statin (5) HTN (hypertension): Plan: BP in the ED was 170/55. - Continue home Imdur, losartan, and HCTZ (6) FLAVIO (obstructive sleep apnea): Plan: Uses CPAP at home: 9 cmH20 with no O2. - Use hospital device (7) GERD (gastroesophageal reflux disease): Plan: - Continue home PPI (8) DVT prophylaxis: Plan: Eliquis after LLE u/s complete History of Present Illness Primary Care Provider: Dalila Wick MD 76yo F w/ hx of HTN, CAD, and recurrent cellulitis who presents with LLE cellulitis. On Tuesday and of last week, she notes some chills, but no objective fever. On Tuesday night, she woke up with severe pain behind the left knee. She describes it as a throbbing pain which lasted throughout the night. On Tuesday, she noticed the redness of the left leg. She came to the ER and was diagnosed with cellulitis and started on Keflex and doxycycline. Since that time, she notes that she has not seen any significant change in the cellulitis. She received some antibiotics in the ER, and she reports that she has been taking all the prescribed doses. Today, the pain became significantly worse, and she also noted more pain behind the knee again which had not been present. She endorses some continued chills, but no fever measured at home. She has felt somewhat nauseated, but no vomiting. Her stool has become slightly looser since starting the antibiotics on Tuesday, but no melena or hematochezia. No headache, vision changes, chest pain, abdominal pain, shortness of breath, or other systemic symptoms. She had a left external iliac vein stent put in in [place]. She saw her providers yesterday and reports no DVT and that the stent was functioning properly. Allergies Allergy/AdvReac Type Severity Reaction Status Date / Time bee venom protein (honey bee) Allergy Severe Anaphylaxis Verified 06/18/21 14:27 Aminoglycosides Allergy Intermediate SEVERE RASH Verified 06/18/21 14:27 bacitracin Allergy Intermediate SEVERE RASH Verified 06/18/21 14:27 levofloxacin [From Levaquin] Allergy Intermediate RUPTURE Verified 06/18/21 14:27 ACHILLES neomycin Allergy Intermediate SEVERE RASH Verified 06/18/21 14:27 polymyxin B Allergy Intermediate SEVERE RASH Verified 06/18/21 14:27 Home Medications Medication Instructions Recorded Confirmed Type acetaminophen 500 mg tablet 1,000 mg PO Q6H 08/14/19 11/18/20 History hydrochlorothiazide 25 mg tablet 25 mg PO QAM 08/14/19 11/18/20 History isosorbide mononitrate 30 mg 30 mg PO QAM 08/14/19 11/18/20 History tablet,extended release 24 hr losartan 100 mg tablet 100 mg PO QAM 08/14/19 11/18/20 History omeprazole 20 mg tablet,delayed 20 mg PO QAM 08/14/19 11/18/20 History release rosuvastatin 40 mg tablet 40 mg PO HS 08/14/19 11/18/20 History epinephrine 0.3 mg/0.3 mL 0.3 mg IM UD 11/18/20 11/18/20 History injection, auto-injector (EpiPen) flecainide 100 mg tablet 100 mg PO BID 11/18/20 11/18/20 History cephalexin 500 mg capsule 500 mg PO TID 10 Days #30 cap 06/13/21 Rx doxycycline hyclate 100 mg tablet 100 mg PO BID 10 Days #20 tab 06/13/21 Rx apixaban 5 mg tablet (Eliquis) 5 mg PO BID 06/18/21 06/18/21 History Past Med/Surg History Medical History (Updated 06/18/21 @ 14:[address]riz[address] MD) Arthritis CAD (coronary artery disease) Deep vein thrombosis DURING "MANY YEARS AGO">BLOOD THINNER AT THAT TIME (SINCE DISCONTINUED) Degenerative disc disease GERD (gastroesophageal reflux disease) History of cellulitis LOWER LEGS (REASON FOR BACTRIM) Hx of migraines Hyperlipidemia Hypertension Prediabetes DIET CONTROLLED Sleep apnea CPAP Surgical History Fusion of spine LUMBAR History of appendectomy History of arthroscopy LEFT KNEE X 1/RT KNEE X 2 History of cardiac cath OVER 5 YEARS AGO (NO STENTS PLACED) [place] History of cholecystectomy History of colonoscopy WITH POLYPS REMOVED History of esophagogastroduodenoscopy (EGD) History of hysterectomy History of tooth extraction Hx of left cataract extraction Family History Mother Family history of diabetes mellitus Social History Smoking Status: Never smoker Second Hand Exposure: Yes (in past); Hx Alcohol Use: No Hx Substance Use: No Preferred Language: Samoan Communication Ability: Effective Heel Seam Rubber Required: No Beliefs That Will Affect Care: None marital status: Current Living Situation: Spouse and Other Current Living Situation Comment: pt lives with spouse and brother How many Children do You have: 3 Feels Safe at Home: Yes Assistive Devices: Walker Review of Systems Review of Systems: All systems reviewed & are unremarkable except as noted in HPI & below Physical Exam Constitutional: WD/WN, vitals as above Eyes: EOM intact bilaterally; no conjunctival abnormality ENMT: external ear and nose normal, oropharynx normal Neck: trachea midline, no thyromegaly normal visual inspection Respiratory: normal respiratory effort, lungs clear to auscultation no respiratory distress Cardiovascular: RRR, no murmur, no edema Gastrointestinal (Abdomen): Inspection/Auscultation: abdomen normal to inspection; abdomen not distended Musculoskeletal: no cyanosis or clubbing, extremities motor strength 5/5 Skin: + erythema (Circumferential on left aguillon with area of possible fluctuance) Neurologic: moves all extremities and awake Psychiatric: Orientation: alert, oriented to person and cooperative Results & Data Results & Data ([facility]) Vital Signs (Past 12 Hours) Vital Signs Temp Pulse Resp BP Pulse Ox 06/18/21 13:07 61 17 169/57 H 97 06/18/21 12:45 72 20 98 06/18/21 11:41 36.3 C L 72 20 190/69 H 98 PG Care Time/CCT Total # of Minutes Spent Total Time Spent with Patient: Total time spent is greater than 50% in coordination of care (as documented) at patient's floor/unit and/or counseling patient: Coding Level of Care Code INT OBSERVATION CARE 70M LVL 3 Diagnoses Cellulitis of left lower leg L03.116 CKD (chronic kidney disease) N18.9 Chronic kidney disease stage: unspecified stage FLAVIO (obstructive sleep apnea) G47.33 GERD (gastroesophageal reflux disease) K21.9 HTN (hypertension) I10 Hypertension type: unspecified DVT prophylaxis Z29.9 Atrial fibrillation I48.91 CAD (coronary artery disease) I25.10 (1) CKD (chronic kidney disease) Chronic kidney disease stage: unspecified stage Qualified Code(s): N18.9 - Chronic kidney disease, unspecified (2) HTN (hypertension) Hypertension type: unspecified Qualified Code(s): I10 - Essential (primary) hypertension
[2021-06-18] MEDS ORDERED: ONDANSETRON INJ 2 MG/ML 2 ML VIAL IV PRN (16:03)
--- NOTE | 2021-06-18 18:08 | Electrocardiogram Report ---
Test Reason : Blood Pressure : / mmHG Vent. Rate : 061 BPM Atrial Rate : 061 BPM P-R Int : 178 ms QRS Dur : 104 ms QT Int : 426 ms P-R-T Axes : 041 -33 063 degrees QTc Int : 428 ms Normal sinus rhythm Left axis deviation Moderate voltage criteria for LVH, may be normal variant Incomplete right bundle branch block Abnormal ECG When compared with ECG of 18-NOV-2020 17:42, T wave inversion no longer evident in Anterior leads Confirmed by Javi Arreaga ([id number]) on 06/18/2021 6:08:28 PM Referred By: REFERRED SELF Confirmed By:Remigio Arreaga
--- NOTE | 2021-06-18 18:13 | Ultrasound Report ---
US extremity non-vascular ltd CLINICAL HISTORY: Left medial aguillon swelling- Concern for abscess COMPARISON STUDY: Left tibia/fibula 06/18/2021. FINDINGS: Real-time sonographic imaging of the left lower leg was performed with merchandising representative image s submitted. There is subcutaneous edema and multiple varicosities. No loculated fluid collections to suggest an abscess. IMPRESSION: Extensive subcutaneous edema in the left lower leg. No abscess ACT 112: Negative or not required by law. Electronically signed by: Oleg Lawson M.D. 06/18/2021 6:12 PM
[2021-06-18] MEDS ORDERED: PIPERACILLIN/TAZOBACTAM 4.5 GM in DEXTROSE 5% 100 ML IV SCH (19:00)
[2021-06-18] MEDS: ACETAMINOPHEN 325 MG TAB PO PRN (21:11)
[2021-06-18] MEDS: APIXABAN 5 MG TABLET PO SCH (21:11)
[2021-06-18] MEDS: FLECAINIDE ACETATE 100 MG TABLET PO SCH (21:12)
[2021-06-18] MEDS: MELATONIN 3 MG TAB PO PRN (22:56)
[2021-06-19] MEDS: ACETAMINOPHEN 325 MG TAB PO PRN ×3 (03:13→19:29)
[2021-06-19] MEDS ORDERED: oxyCODONE HCL IR 5 MG TAB (IMMEDIATE RELEASE) PO STA (04:14)
[2021-06-19] MEDS ORDERED: hydroCHLOROthiazide 25 MG TAB PO STA (06:55)
[2021-06-19] MEDS ORDERED: LOSARTAN POTASSIUM 50 MG TAB PO STA (06:56)
--- NOTE | 2021-06-19 06:59 | Communication Note ---
Date of Service: June 19, 2021 Earlier in night, ordered oxycodone 2.5mg for leg cellulitis pain. Patient refused and does not want to take narcotic medications. 6:45AM: Notified by nursing of bp of 203/80. Pulse was 56. Giving AM dose of home losartan and hctz now. Changed the qam orders to start tomorrow. Defer today's imdur in setting of bradycardia.
[2021-06-19 07:28] LABS: Hematocrit (blood only) 32.3 % (37-47); Hemoglobin 10.5 g/dL (12.0-16.0); Mean Corpuscular Hemoglobin 29.7 pg (25-34); Mean Corpuscular Hgb Conc 32.5 g/dL (32-36); Mean Corpuscular Volume 91.5 fL (80-100); Mean Platelet Volume 10.5 fL (7.4-10.4); Platelet Count 249 K/uL (130-400); RDW Coefficient of Variation 15.1 % (11.5-14.5); RDW Standard Deviation 50.8 fL (36.4-46.3); Red Blood Count 3.53 M/uL (4.2-5.4); White Blood Count 6.52 K/uL (4.8-10.8)
[2021-06-19] MEDS: APIXABAN 5 MG TABLET PO SCH ×2 (07:52→19:47)
[2021-06-19] MEDS: FLECAINIDE ACETATE 100 MG TABLET PO SCH ×2 (07:53→19:47)
[2021-06-19 07:54] LABS: BUN Creatinine Ratio 19.3 (10-20); Calcium 9.4 mg/dl (8.5-10.1); Creatinine Clr Calc Pharmacy 51.3 ml/min; Est GFR (African American) 54.1 ml/min; Est GFR (Non-African American) 46.7 ml/min; Magnesium 1.5 mg/dl (1.7-2.4); Potassium 4.2 mmol/L (3.5-5.1)
[2021-06-19] MEDS ORDERED: LOSARTAN POTASSIUM 50 MG TAB PO SCH (09:00)
[2021-06-19] MEDS ORDERED: hydroCHLOROthiazide 25 MG TAB PO SCH (09:00)
[2021-06-19] MEDS ORDERED: ISOSORBIDE MONO EXTENDED REL 30 MG TABCR PO SCH (09:00)
[2021-06-19] MEDS: PANTOprazole 40 MG TAB PO SCH (12:22)
[2021-06-19] MEDS ORDERED: DAPTOmycin 475 MG in SYRINGE 0 ML IV SCH (13:00)
[2021-06-19] MEDS: DAPTOmycin 325 MG in SYRINGE 0 ML IV SCH (16:09)
[2021-06-19] MEDS ORDERED: amLODIPine BESYLATE 5 MG TAB PO ONE (18:52)
[2021-06-19] MEDS: MELATONIN 3 MG TAB PO PRN ×2 (19:30→22:09)
[2021-06-19] MEDS: ADVANCED PROBIOTIC 1250 MG CAPSULE PO SCH (19:46)
--- NOTE | 2021-06-19 21:21 | Hospitalist Progress Note ---
Date of Service June 19, 2021 Assessment & Plan (1) Cellulitis of left lower leg: Plan: Recurrent episodes which were thought to be due to venous status. - Failed outpatient Keflex and doxycycline - Daptomycin & Zosyn ordered in the ER -> Will continue daptomycin, but stop Zosyn if no abscess noted. - Stat LLE u/s ordered for possible abscess: this was negative. -Perhpas this may be a chavis's cyst from OA of her affected knee. Will continue with IV antibiotics and continue to monitor. -Erythema does not appear to be a signifcant on my exam as compared to the admitting provider. (2) CKD (chronic kidney disease): Plan: Baseline Cr ~1.1, though higher in 10/2020 (~1.5 then). CKD Stage II. - Monitor Cr - Renally dose medications (3) Atrial fibrillation: Plan: Hx of. Presently in sinus rhythm. - Continue home flecainide - eliquis has been restarted (4) CAD (coronary artery disease): Plan: Per patient, she had a nuc med study done just this past week which showed an area of prior infarct, but no reversible defects. - Continue home Imdur, losartan, statin (5) HTN (hypertension): Plan: BP in the ED was 170/55. - Continue home Imdur, losartan, and HCTZ (6) FLAVIO (obstructive sleep apnea): Plan: Uses CPAP at home: 9 cmH20 with no O2. - Use hospital device (7) GERD (gastroesophageal reflux disease): Plan: - Continue home PPI (8) DVT prophylaxis: Plan: Eliquis after LLE u/s complete Admission and Anticipated Discharge Date Admission Date: June 18, 2021 Subjective Patient continues to have pain in her left leg. Review of Systems Review of Systems: All systems reviewed & are unremarkable except as noted in HPI & below Physical Exam Constitutional: WD/WN, vitals as above Eyes: EOM intact bilaterally; no conjunctival abnormality ENMT: external ear and nose normal, oropharynx normal Neck: trachea midline, no thyromegaly normal visual inspection Respiratory: normal respiratory effort, lungs clear to auscultation no respiratory distress Cardiovascular: RRR, no murmur, no edema Gastrointestinal (Abdomen): Inspection/Auscultation: abdomen normal to inspection; abdomen not distended Musculoskeletal: no cyanosis or clubbing, extremities motor strength 5/5 Skin: + erythema (Circumferential on left aguillon with area of possible fluctuance) Neurologic: moves all extremities and awake Psychiatric: Orientation: alert, oriented to person and cooperative Results & Data Results & Data ([facility]) Vital Signs (Past 12 Hours) Vital Signs Temp Pulse Pulse Resp BP BP Pulse Ox 06/19/21 19:16 36.6 C 61 18 180/75 H 95 06/19/21 14:50 36.8 C 58 L 20 195/81 H 196/94 H 94 06/19/21 12:13 36.6 C 56 L 20 185/74 H 93 06/19/21 10:44 57 L 183/76 H 06/19/21 10:38 58 L PG Care Time/CCT Total # of Minutes Spent Total Time Spent with Patient: Total time spent is greater than 50% in coordination of care (as documented) at patient's floor/unit and/or counseling patient: Coding Level of Care Code 71562 Subseq Hosp Care Lvl 3 Diagnoses Cellulitis of left lower leg L03.116 CKD (chronic kidney disease) N18.9 Chronic kidney disease stage: unspecified stage Atrial fibrillation I48.91 CAD (coronary artery disease) I25.10 HTN (hypertension) I10 Hypertension type: unspecified FLAVIO (obstructive sleep apnea) G47.33 GERD (gastroesophageal reflux disease) K21.9 DVT prophylaxis Z29.9 Time Spent (min) 35 (1) CKD (chronic kidney disease) Chronic kidney disease stage: unspecified stage Qualified Code(s): N18.9 - Chronic kidney disease, unspecified (2) HTN (hypertension) Hypertension type: unspecified Qualified Code(s): I10 - Essential (primary) hypertension
[2021-06-20] MEDS: ACETAMINOPHEN 325 MG TAB PO PRN ×3 (03:19→20:06)
[2021-06-20] MEDS: hydroCHLOROthiazide 25 MG TAB PO SCH (08:43)
[2021-06-20] MEDS: LOSARTAN POTASSIUM 50 MG TAB PO SCH (08:43)
[2021-06-20] MEDS: APIXABAN 5 MG TABLET PO SCH ×2 (08:43→20:09)
[2021-06-20] MEDS: ADVANCED PROBIOTIC 1250 MG CAPSULE PO SCH (08:43)
[2021-06-20] MEDS: PANTOprazole 40 MG TAB PO SCH (08:43)
[2021-06-20] MEDS: FLECAINIDE ACETATE 100 MG TABLET PO SCH ×2 (08:43→20:09)
[2021-06-20] MEDS: ISOSORBIDE MONO EXTENDED REL 30 MG TABCR PO SCH (09:54)
[2021-06-20] MEDS: MAGNESIUM OXIDE 400 MG TAB PO SCH ×2 (11:59→20:09)
[2021-06-20] MEDS: DAPTOmycin 325 MG in SYRINGE 0 ML IV SCH (12:00)
--- NOTE | 2021-06-20 18:11 | Hospitalist Progress Note ---
Date of Service June 20, 2021 Assessment & Plan (1) Cellulitis of left lower leg: Plan: Recurrent episodes which were thought to be due to venous status. - Failed outpatient Keflex and doxycycline - Daptomycin & Zosyn ordered in the ER -> Will continue daptomycin, but stop Zosyn if no abscess noted. - Stat LLE u/s ordered for possible abscess: this was negative. -Perhaps this may be a chavis's cyst from OA of her affected knee. -Erythema appears to be improving with IV antibiotics -pain is still significant but improved. -will continue to monitor. (2) CKD (chronic kidney disease): Plan: Baseline Cr ~1.1, though higher in 10/2020 (~1.5 then). CKD Stage II. - Monitor Cr - Renally dose medications (3) Atrial fibrillation: Plan: Hx of. Presently in sinus rhythm. - Continue home flecainide - eliquis has been restarted (4) CAD (coronary artery disease): Plan: Per patient, she had a nuc med study done just this past week which showed an area of prior infarct, but no reversible defects. - Continue home Imdur, losartan, statin (5) HTN (hypertension): Plan: BP in the ED was 170/55. - Continue home Imdur, losartan, and HCTZ (6) FLAVIO (obstructive sleep apnea): Plan: Uses CPAP at home: 9 cmH20 with no O2. - Use hospital device (7) GERD (gastroesophageal reflux disease): Plan: - Continue home PPI (8) DVT prophylaxis: Plan: Eliquis after LLE u/s complete Admission and Anticipated Discharge Date Admission Date: June 19, 2021 Subjective Patient reports decreased pain in her leg. Review of Systems Review of Systems: All systems reviewed & are unremarkable except as noted in HPI & below Physical Exam Constitutional: WD/WN, vitals as above Eyes: EOM intact bilaterally; no conjunctival abnormality ENMT: external ear and nose normal, oropharynx normal Neck: trachea midline, no thyromegaly normal visual inspection Respiratory: normal respiratory effort, lungs clear to auscultation no respiratory distress Cardiovascular: RRR, no murmur, no edema Gastrointestinal (Abdomen): Inspection/Auscultation: abdomen normal to inspection; abdomen not distended Musculoskeletal: no cyanosis or clubbing, extremities motor strength 5/5 Skin: + erythema (Circumferential on left aguillon with area of possible fluctuance) Neurologic: moves all extremities and awake Psychiatric: Orientation: alert, oriented to person and cooperative Results & Data Results & Data ([facility]) Vital Signs (Past 12 Hours) Vital Signs Temp Pulse Pulse Resp BP BP Pulse Ox 06/20/21 17:00 64 06/20/21 15:54 36.5 C 55 L 20 103/55 L 92 06/20/21 09:00 54 L 06/20/21 06:49 36.6 C 55 L 20 156/76 H 92 PG Care Time/CCT Total # of Minutes Spent Total Time Spent with Patient: Total time spent is greater than 50% in coordination of care (as documented) at patient's floor/unit and/or counseling patient: Coding Level of Care Code 65911 Subseq Hosp Care Lvl 2 Diagnoses Cellulitis of left lower leg L03.116 CKD (chronic kidney disease) N18.9 Chronic kidney disease stage: unspecified stage Atrial fibrillation I48.91 CAD (coronary artery disease) I25.10 HTN (hypertension) I10 Hypertension type: unspecified FLAVIO (obstructive sleep apnea) G47.33 GERD (gastroesophageal reflux disease) K21.9 DVT prophylaxis Z29.9 Time Spent (min) 25 (1) CKD (chronic kidney disease) Chronic kidney disease stage: unspecified stage Qualified Code(s): N18.9 - Chronic kidney disease, unspecified (2) HTN (hypertension) Hypertension type: unspecified Qualified Code(s): I10 - Essential (primary) hypertension
[2021-06-20] MEDS: MELATONIN 3 MG TAB PO PRN (20:06)
[2021-06-21] MEDS: ACETAMINOPHEN 325 MG TAB PO PRN ×3 (02:53→19:58)
[2021-06-21 07:13] LABS: Creatinine Clr Calc Pharmacy 44.3 ml/min; Est GFR (African American) 45.7 ml/min; Est GFR (Non-African American) 39.5 ml/min
[2021-06-21] MEDS: MAGNESIUM OXIDE 400 MG TAB PO SCH ×2 (08:53→20:46)
[2021-06-21] MEDS: FLECAINIDE ACETATE 100 MG TABLET PO SCH ×2 (08:53→20:46)
[2021-06-21] MEDS: LOSARTAN POTASSIUM 50 MG TAB PO SCH (08:53)
[2021-06-21] MEDS: APIXABAN 5 MG TABLET PO SCH ×2 (08:53→20:46)
[2021-06-21] MEDS: hydroCHLOROthiazide 25 MG TAB PO SCH (08:54)
[2021-06-21] MEDS: ADVANCED PROBIOTIC 1250 MG CAPSULE PO SCH (08:54)
[2021-06-21] MEDS: PANTOprazole 40 MG TAB PO SCH (08:54)
[2021-06-21] MEDS: ISOSORBIDE MONO EXTENDED REL 30 MG TABCR PO SCH (08:54)
[2021-06-21] MEDS: DAPTOmycin 325 MG in SYRINGE 0 ML IV SCH (14:23)
--- NOTE | 2021-06-21 17:58 | Hospitalist Progress Note ---
Date of Service June 21, 2021 Assessment & Plan (1) Cellulitis of left lower leg: Plan: Recurrent episodes which were thought to be due to venous status. - Failed outpatient Keflex and doxycycline - Daptomycin & Zosyn ordered in the ER -> - Will continue daptomycin, but stop Zosyn if no abscess noted. - Stat LLE u/s ordered for possible abscess: this was negative. - Perhaps this may be a chavis's cyst from OA of her affected knee. - Erythema appears to be improving with IV antibiotics - pain is still significant but improved. - will continue to monitor. - possible discharge on tuesday. (2) CKD (chronic kidney disease): Plan: Baseline Cr ~1.1, though higher in 10/2020 (~1.5 then). CKD Stage II. - Monitor Cr - Renally dose medications (3) Atrial fibrillation: Plan: Hx of. Presently in sinus rhythm. - Continue home flecainide - eliquis has been restarted (4) CAD (coronary artery disease): Plan: Per patient, she had a nuc med study done just this past week which showed an area of prior infarct, but no reversible defects. - Continue home Imdur, losartan, statin (5) HTN (hypertension): Plan: BP in the ED was 170/55. - Continue home Imdur, losartan, and HCTZ (6) FLAVIO (obstructive sleep apnea): Plan: Uses CPAP at home: 9 cmH20 with no O2. - Use hospital device (7) GERD (gastroesophageal reflux disease): Plan: - Continue home PPI (8) DVT prophylaxis: Plan: Eliquis after LLE u/s complete Admission and Anticipated Discharge Date Admission Date: June 19, 2021 Subjective Patient reports her legs feel better and less swollen. Review of Systems Review of Systems: All systems reviewed & are unremarkable except as noted in HPI & below Physical Exam Constitutional: WD/WN, vitals as above Eyes: EOM intact bilaterally; no conjunctival abnormality ENMT: external ear and nose normal, oropharynx normal Neck: trachea midline, no thyromegaly normal visual inspection Respiratory: normal respiratory effort, lungs clear to auscultation no respiratory distress Cardiovascular: RRR, no murmur, no edema Gastrointestinal (Abdomen): Inspection/Auscultation: abdomen normal to inspection; abdomen not distended Musculoskeletal: no cyanosis or clubbing, extremities motor strength 5/5 Skin: + erythema (Circumferential on left aguillon with area of possible fluctuance) Neurologic: moves all extremities and awake Psychiatric: Orientation: alert, oriented to person and cooperative Results & Data Results & Data ([facility]) Vital Signs (Past 12 Hours) Vital Signs Temp Pulse Pulse Resp BP BP Pulse Ox 06/21/21 15:36 36.6 C 60 20 128/68 92 06/21/21 14:20 58 L 06/21/21 12:18 36.5 C 57 L 20 157/73 H 93 06/21/21 07:00 62 06/21/21 06:41 36.6 C 57 L 18 139/57 L 92 PG Care Time/CCT Total # of Minutes Spent Total Time Spent with Patient: Total time spent is greater than 50% in coordination of care (as documented) at patient's floor/unit and/or counseling patient: Coding Level of Care Code 01615 Subseq Hosp Care Lvl 2 Diagnoses Cellulitis of left lower leg L03.116 CKD (chronic kidney disease) N18.9 Chronic kidney disease stage: unspecified stage Atrial fibrillation I48.91 CAD (coronary artery disease) I25.10 HTN (hypertension) I10 Hypertension type: unspecified FLAVIO (obstructive sleep apnea) G47.33 GERD (gastroesophageal reflux disease) K21.9 DVT prophylaxis Z29.9 (1) CKD (chronic kidney disease) Chronic kidney disease stage: unspecified stage Qualified Code(s): N18.9 - Chronic kidney disease, unspecified (2) HTN (hypertension) Hypertension type: unspecified Qualified Code(s): I10 - Essential (primary) hypertension
[2021-06-21] MEDS: MELATONIN 3 MG TAB PO PRN (20:46)
[2021-06-22] MEDS: ACETAMINOPHEN 325 MG TAB PO PRN (05:32)
[2021-06-22] MEDS: MAGNESIUM OXIDE 400 MG TAB PO SCH (09:47)
[2021-06-22] MEDS: FLECAINIDE ACETATE 100 MG TABLET PO SCH (09:47)
[2021-06-22] MEDS: hydroCHLOROthiazide 25 MG TAB PO SCH (09:47)
[2021-06-22] MEDS: APIXABAN 5 MG TABLET PO SCH (09:47)
[2021-06-22] MEDS: ISOSORBIDE MONO EXTENDED REL 30 MG TABCR PO SCH (09:48)
[2021-06-22] MEDS: ADVANCED PROBIOTIC 1250 MG CAPSULE PO SCH (09:48)
[2021-06-22] MEDS: LOSARTAN POTASSIUM 50 MG TAB PO SCH (09:48)
[2021-06-22] MEDS: PANTOprazole 40 MG TAB PO SCH (09:48)
[2021-06-22] MEDS: DAPTOmycin 325 MG in SYRINGE 0 ML IV SCH (15:43)
--- NOTE | 2021-06-22 18:10 | Ultrasound Report ---
ULTRASOUND LEFT CALF NONVASCULAR CLINICAL HISTORY: Left leg pain and erythema. COMPARISON STUDY: Ultrasound of the left calf dated 06/18/2021. FINDINGS: Real-time grayscale and color flow sonography of the soft tissues of the left calf is perfo rmed at the indicated site of interest. Soft tissue edema and subcutaneous fluid is noted in the medi al calf at the site of interest. No organized/drainable fluid collection is identified. Question a sm all amount of superficial venous thrombus at this site. IMPRESSION: 1. Soft tissue edema and subcutaneous fluid in the left calf at the site of interest. No organized/dr ainable fluid collection is seen. 2. Question a small amount of superficial venous thrombus in this region. Electronically signed by: Feliz Fulton M.D. 06/22/2021 6:08 PM
--- NOTE | 2021-06-22 20:32 | Discharge Summary ---
Date of Service June 22, 2021 Admission HPI Per Admitting Provider 76yo F w/ hx of HTN, CAD, and recurrent cellulitis who presents with LLE cellulitis. On Tuesday and of last week, she notes some chills, but no objective fever. On Tuesday night, she woke up with severe pain behind the left knee. She describes it as a throbbing pain which lasted throughout the night. On Tuesday, she noticed the redness of the left leg. She came to the ER and was diagnosed with cellulitis and started on Keflex and doxycycline. Since that time, she notes that she has not seen any significant change in the cellulitis. She received some antibiotics in the ER, and she reports that she has been taking all the prescribed doses. Today, the pain became significantly worse, and she also noted more pain behind the knee again which had not been present. She endorses some continued chills, but no fever measured at home. She has felt somewhat nauseated, but no vomiting. Her stool has become slightly looser since starting the antibiotics on Tuesday, but no melena or hematochezia. No heada noreen, vision changes, chest pain, abdominal pain, shortness of breath, or other systemic symptoms. She had a left external iliac vein stent put in in [place]. She saw her providers yesterday and reports no DVT and that the stent was functioning properly. Principal Diagnosis cellulitis of lower left leg Discharge Exam Constitutional WD/WN, vitals as above Eyes EOM intact bilaterally; no conjunctival abnormality ENMT external ear and nose normal, oropharynx normal Neck trachea midline, no thyromegaly normal visual inspection Respiratory normal respiratory effort, lungs clear to auscultation no respiratory distress Cardiovascular RRR, no murmur, no edema Gastrointestinal (Abdomen) Inspection/Auscultation: abdomen normal to inspection; abdomen not distended Musculoskeletal no cyanosis or clubbing, extremities motor strength 5/5 Skin + erythema (Circumferential on left aguillon with area of possible fluctuance) Neurologic moves all extremities and awake Psychiatric Orientation: alert, oriented to person and cooperative Discharge Data Allergies Allergy/AdvReac Type Severity Reaction Status Date / Time bee venom protein (honey bee) Allergy Severe Anaphylaxis Verified 06/18/21 14:27 Aminoglycosides Allergy Intermediate SEVERE RASH Verified 06/18/21 14:27 bacitracin Allergy Intermediate SEVERE RASH Verified 06/18/21 14:27 levofloxacin [From Levaquin] Allergy Intermediate RUPTURE Verified 06/18/21 14:27 ACHILLES neomycin Allergy Intermediate SEVERE RASH Verified 06/18/21 14:27 polymyxin B Allergy Intermediate SEVERE RASH Verified 06/18/21 14:27 Consultations 06/18/21 14:01 ED Decision to Admit Stat Ordered Studies 06/18/21 14:24 US extremity non-vascular ltd Stat 06/22/21 16:19 US extremity non-vascular ltd Urgent Hospital Course (1) Cellulitis of left lower leg: Recurrent episodes which were thought to be due to venous status. - Failed outpatient Keflex and doxycycline - Daptomycin & Zosyn ordered in the ER -> - Will continue daptomycin, but stop Zosyn if no abscess noted. - Stat LLE u/s ordered for possible abscess: this was negative. - Perhaps this may be a chavis's cyst from OA of her affected knee. - Erythema appears to be improving with IV antibiotics - Pain improved over time. - Patient will be discharge on bactrim. -Ultrasound: Question a small amount of superficial venous thrombus in this region. -will recommend repeat U/S in the next week. If Superficial vein is confirmed, may require switching DOAC to different medication. (2) CKD (chronic kidney disease): Baseline Cr ~1.1, though higher in 10/2020 (~1.5 then). CKD Stage II. - Monitor Cr - Renally dose medications (3) Atrial fibrillation: Hx of. Presently in sinus rhythm. - Continue home flecainide - eliquis has been restarted (4) CAD (coronary artery disease): Per patient, she had a nuc med study done just this past week which showed an area of prior infarct, but no reversible defects. - Continue home Imdur, losartan, statin (5) HTN (hypertension): BP in the ED was 170/55. - Continue home Imdur, losartan, and HCTZ (6) FLAVIO (obstructive sleep apnea): Uses CPAP at home: 9 cmH20 with no O2. - Use hospital device (7) GERD (gastroesophageal reflux disease): - Continue home PPI (8) DVT prophylaxis: Eliquis after LLE u/s complete Total Time Total Time Spent Total Time Spent (In Minutes): 35 Discharge Plan Discharge Items Patient Disposition: Home - Self-Care Reason For Visit: LLE CELLULITIS Discharge Diagnosis: left lower cellulitis Activity: Resume your previous activity Non-emergency contact: Primary Care Provider Call non-emergency contact if: you have any medication questions Follow-up/Referrals: Dalila Wick MD [Primary Care Provider] - Diet: Heart Healthy Addtl Attending Provider Instructions: You have been hospitalized for an acute medical problem. During your stay at [facility], we have made an effort to correct the problem that brought you to the hospital while keeping you as comfortable as possible. Medications were used to bring your condition under control and your discharge instructions will include directions for any medications you should take after leaving the hospital. Please make sure you see your Primary Care Provider as part of your follow up plan. Recommend close followup with PCP this week. Continue Eliquis. Recommend repeat venous ultrasound to assess for possible deep vein thrombosis. Pending Studies at Discharge: No Stand-Alone Forms: My [facility], Smoking Cessation Medications and DC Order Prescriptions: New sulfamethoxazole-trimethoprim [Bactrim DS] 800-160 mg tablet 1 tab PO DAILY 10 Days Qty: 10 RF: 0 Continued isosorbide mononitrate 30 mg Tablet Extended Release 24 Hr 30 mg PO QAM RF: 0 hydrochlorothiazide 25 mg Tablet 25 mg PO QAM RF: 0 losartan 100 mg Tablet 100 mg PO QAM RF: 0 rosuvastatin 40 mg Tablet 40 mg PO HS RF: 0 omeprazole 20 mg Tablet,Delayed Release (Dr/Ec) 20 mg PO QAM RF: 0 acetaminophen 500 mg Tablet 1,000 mg PO Q6H RF: 0 Eliquis 5 mg tablet 5 mg PO BID RF: 0 flecainide 100 mg tablet 100 mg PO BID RF: 0 epinephrine [EpiPen] 0.3 mg/0.3 mL auto-injector 0.3 mg IM UD RF: 0 Discontinued cephalexin 500 mg capsule 500 mg PO TID 10 Days Qty: 30 RF: 0 doxycycline hyclate 100 mg tablet 100 mg PO BID 10 Days Qty: 20 RF: 0 Discharge Orders: Discharge Order (Routine); Ordered 06/22/21 Ordered By: Steve Villalba Admission Data Admit Date/Time: 06/19/21 18:51 Attending Provider: Steve Villalba Admit Provider: Lane Carrizales Primary Care Provider: Dalila Wick Other Providers: Lane Carrizales Other Interventions: Discharge Summary Assessment (RN) Last Done: 06/22/21 19:36 Coding Level of Care Code D/C DAY MANAGEMENT >30 MINS Diagnoses Cellulitis of left lower leg L03.116 CKD (chronic kidney disease) N18.9 Chronic kidney disease stage: unspecified stage Atrial fibrillation I48.91 CAD (coronary artery disease) I25.10 HTN (hypertension) I10 Hypertension type: unspecified FLAVIO (obstructive sleep apnea) G47.33 GERD (gastroesophageal reflux disease) K21.9 DVT prophylaxis Z29.9
== END 2021-06-22 21:47 | disposition home or self-care (01) | DRG 603 ==
LOC: 2W 11:39 → ED 11:39 → SUATTDRO 14:49 → 2W 15:43